=== PATIENT | male | born 1950 | race Caucasian/White ===

== ENCOUNTER 2017-02-21 07:38 | Observation (INO) ==
[2017-02-21 08:22] LABS: Basophils % 0.4 %; Eosinophils # 0.1 K/mcL (0.0-0.6); Eosinophils % 0.9 %; Hematocrit 45.1 % (37.5-50.1); Hemoglobin 14.9 g/dL (12.9-16.9); Immature Granulocytes % 0.1 % (0-4); Lymphocytes % 25.9 %; Mean Corpuscular Hemoglobin 28.4 pg (28.0-33.3); Mean Corpuscular Volume 85.9 fL (83.0-100.0); Mean Platelet Volume 9.9 fL (9.4-12.4); Monocytes # 0.5 K/mcL (0.0-1.3); Monocytes % 6.1 %; Neutrophils # 5.2 K/mcL (1.6-8.9); Platelet Count 201 K/mcL (140-400); Red Blood Count 5.25 M/mcL (4.19-5.50); Red Cell Distribution Width 13.6 % (11.5-14.5); Segmented Neutrophils % 66.6 %
[2017-02-21 08:28] LABS: INR 1.2; Prothrombin Time 12.8 Seconds (9.4-12.1)
[2017-02-21 08:31] LABS: Activated Partial Thrombo Time 31.3 Seconds (26.0-36.0)
[2017-02-21 08:41] LABS: Alanine Aminotransferase 46 Units/L (0-55); Albumin 3.6 g/dL (3.5-5.0); Albumin/Globulin Ratio 1.2 (1.1-2.2); Alkaline Phosphatase 108 Units/L (38-126); Aspartate Amino Transferase 41 Units/L (5-34); BUN/Creatinine Ratio 20 (6-26); Bilirubin,Direct 0.3 mg/dL (0.0-0.5); Bilirubin,Indirect 0.5 mg/dL (0.0-1.2); Bilirubin,Total 0.8 mg/dL (0.2-1.2); Blood Urea Nitrogen 17 mg/dL (8-26); Calcium 9.3 mg/dL (8.6-10.8); Carbon Dioxide 17 mEq/L (19-29); Globulin 3.1 g/dL (2.4-3.5); Glucose 122 mg/dL (70-99); Total Protein 6.7 g/dL (6.0-8.3); eGFR For African Americans > 60 (> 60); eGFR For Non-African Americans > 60 (> 60)
--- NOTE | 2017-02-21 08:43 | Emergency Department Note ---
START Narrative - START START: I examined this patient and my medical decision-making was reviewed with the TANNING CONSULTANT/PA/Advanced Practice Nurse/Resident Physician. I agree with the documented findings, disposition and treatment plan as described except to the extent set forth below. I did see the patient spoke with him and examine him and his lungs are clear, heart is regular without murmur. He does have shortness of breath and chest discomfort. Presently the last 1 week. I did review his EKG showing sinus tachycardia with rate 112 bpm and there are frequent PVCs and some nonspecific ST changes. The patient will be admitted to the hospital. Does have labs pending including troponin level. D-dimer will be added. Chest x-ray. We watched on the director of cardiac cath lab and pulse oximeter [id number]
--- NOTE | 2017-02-21 08:53 | Emergency Department Note ---
Disposition Clinical Impression: NSTEMI (non-ST elevated myocardial infarction), Dilated aortic root Acute congestive heart failure Qualifiers: Congestive heart failure type: unspecified congestive heart failure type Qualified Code(s): I50.9 - Heart failure, unspecified Disposition: Admitted As Inpatient Condition: Fair Referrals: NONE,PCP [Primary Care Provider] - Forms: ED Satisfaction Letter Time of Disposition: 10:25 SOB HPI - General Chief Complaint: ED Shortness of Breath/Dyspnea Stated Complaint: SOB Time Seen by Provider: 02/21/17 07:45 Source: patient, family Mode of arrival: ambulatory Limitations: no limitations Nursing Notes Reviewed: Yes Vital Signs Reviewed: Yes - History of Present Illness Mr. Carreon is a 66-year-old male with no past medical history who presents to the emergency department with a one-week history of shortness of breath. He describes the shortness of breath as worsening upon exertion and intermittently worsening. Per patient's , patient does not go to many doctors. Patients concern alarmed the patient's who urged him to come to the emergency department this morning. Patient says he does have some vague tightness in his chest. He describes this as radiating to his arms with some tingling. He does state that many people in his family have been sick recently with upper respiratory infections. He denies any recent surgery or lower extremity pain or discomfort. He denies any nausea or vomiting or any sweating. However he does state he wakes from sleep in the middle the night and feels like he cannot catch his breath. Patient is a heavy smoker and a heavy drinker. He denies any difficulty urinating, any abnormal bowel movements, or any hematuria or hematochezia. - Related Data Home Medications Medication Instructions Recorded Confirmed No Known Home Drugs 02/21/17 02/21/17 Allergies Allergy/AdvReac Type Severity Reaction Status Date / Time No Known Allergies Allergy Verified 02/21/17 07:43 Constitutional: Denies: fever, chills Cardiovascular: Reports: chest pain, palpitations, dyspnea on exertion, paroxysmal nocturnal dyspnea. Denies: edema, syncope Respiratory: Reports: dyspnea. Denies: cough, wheezes, hemoptysis, stridor, sputum production Gastrointestinal: Denies: abdominal pain, nausea, vomiting, diarrhea, hematemesis, melena, hematochezia Genitourinary: Denies: urgency Musculoskeletal: Denies: back pain, neck pain Neurological: Reports: paresthesias (in his bilateral hands, transient abnormal sensation that radiates from chest discomfort). Denies: headache, weakness, numbness Psychiatric: Reports: other (Heavy drinker and smoker) Past Medical History - Past Medical History Attestation: Yes The following information was validated with the patient. Source: patient, obtained from family Medical history: Reports: no medical history Psychiatric history: Reports: no psych history - Social History Smoking Status: Current every day smoker Smokeless Tobacco Status: No Alcohol use: Reports: occasionally Drug use: Reports: none Physical Exam - General Limitations: no limitations General appearance: alert, in no apparent distress - Head Head exam: atraumatic, normocephalic - Eye Eye exam: Present: normal appearance, EOMI. Absent: conjunctival injection - ENT ENT exam: mucous membranes moist - Respiratory Respiratory exam: Present: normal lung sounds bilaterally. Absent: respiratory distress, wheezes, stridor - Cardiovascular Cardiovascular exam: Present: tachycardia, irregular rhythm, systolic murmur ( holosystolic), other (bounding pulses, no carotid bruits). Absent: JVD - Abdominal Exam Abdominal exam: Present: soft, Non-Tender - Extremities Exam Extremities exam: Present: normal inspection, full ROM, normal capillary refill. Absent: tenderness, pedal edema, calf tenderness - Neurological Exam Neurological exam: Present: alert, oriented X3 - Psychiatric Psychiatric exam: Present: normal affect - Skin Skin exam: Present: warm, dry, intact Course Course Narrative: Patient with a one-week history of chest discomfort and shortness of breath. We are concerned for ACS versus PE. Of note, we also are considering myocarditis, pericarditis, or pneumonia. We will proceed with dimer and this cardiac workup. - Reevaluation(s) Reevaluation #1: Patient's ECG showing sinus tachycardia with PVCs. Left atrial enlargement. We were unable to obtain an old EKG. Patient's troponin 0.04, BNP 2000, and d- dimer in the 800s. We will proceed to the CTA of the chest. Reevaluation #2: Patient CTA of his chest shows a dilated thoracic aorta. No evidence of pulmonary emboli. Of note patient does have significant pulmonary edema. We will admit the patient to the hospital with a diagnosis of new onset acute congestive heart failure, and STEMI, and pulmonary edema. Dr. Hatch on medicine admitted the patient. Vital Signs Temperature 97.5 F L 02/21/17 07:40 Pulse Rate 116 02/21/17 07:40 Respiratory Rate 16 02/21/17 07:40 Blood Pressure 180/112 02/21/17 07:40 O2 Sat by Pulse Oximetry 96 02/21/17 07:40 Temperature 97.5 F L 02/21/17 07:40 Pulse Rate 116 02/21/17 07:40 Respiratory Rate 16 02/21/17 07:40 Blood Pressure 180/112 02/21/17 07:40 O2 Sat by Pulse Oximetry 96 02/21/17 07:40 Oxygen Delivery Oxygen Delivery Room Air Shortness of Breath/Dyspnea - Medical Records Medical records reviewed: Yes I reviewed the patient's medical records. - Lab Data Lab results reviewed: Yes I reviewed the patient's lab results. Result diagrams: 02/21/17 08:16 02/21/17 08:16 Lab Results 02/21/17 02/21/17 02/21/17 Range/Units 08:16 08:16 08:16 WBC 7.9 (4.3-11.1) K/mcL RBC 5.25 (4.19-5.50) M/mcL Hgb 14.9 (12.9-16.9) g/dL Hct 45.1 (37.5-50.1) % MCV 85.9 (83.0-100.0) fL MCH 28.4 (28.0-33.3) pg MCHC 33.0 (31.6-35.5) g/dL RDW 13.6 (11.5-14.5) % Plt Count 201 (140-400) K/mcL MPV 9.9 (9.4-12.4) fL Immature Gran % 0.1 (0-4) % Seg Neutrophils % 66.6 % Lymphocytes % 25.9 % Monocytes % 6.1 % Eosinophils % 0.9 % Basophils % 0.4 % Neutrophils # 5.2 (1.6-8.9) K/mcL Lymphocytes # 2.0 (0.6-4.6) K/mcL Monocytes # 0.5 (0.0-1.3) K/mcL Eosinophils # 0.1 (0.0-0.6) K/mcL Basophils # 0.0 (0.0-0.2) K/mcL PT (9.4-12.1) Seconds INR APTT (26.0-36.0) Seconds D-Dimer (0-500) ng/mLFEU Carbon Dioxide 17 L (19-29) mEq/L BUN 17 (8-26) mg/dL Creatinine 0.83 (0.72-1.25) mg/dL Est GFR ( Amer) > 60 (> 60) Est GFR (Non-Af Amer) > 60 (> 60) BUN/Creatinine Ratio 20 (6-26) Glucose 122 H (70-99) mg/dL Lactic Acid 1.6 (0.5-2.2) mmol/L Calcium 9.3 (8.6-10.8) mg/dL Total Bilirubin 0.8 (0.2-1.2) mg/dL Direct Bilirubin 0.3 (0.0-0.5) mg/dL Indirect Bilirubin 0.5 (0.0-1.2) mg/dL AST 41 H (5-34) Units/L ALT 46 (0-55) Units/L Alkaline Phosphatase 108 (38-126) Units/L Troponin I (0-0.03) ng/mL B-Natriuretic Peptide (0-100) pg/mL Serum Total Protein 6.7 (6.0-8.3) g/dL Albumin 3.6 (3.5-5.0) g/dL Globulin 3.1 (2.4-3.5) g/dL Albumin/Globulin Ratio 1.2 (1.1-2.2) 02/21/17 02/21/17 02/21/17 Range/Units 08:16 08:16 08:16 WBC (4.3-11.1) K/mcL RBC (4.19-5.50) M/mcL Hgb (12.9-16.9) g/dL Hct (37.5-50.1) % MCV (83.0-100.0) fL MCH (28.0-33.3) pg MCHC (31.6-35.5) g/dL RDW (11.5-14.5) % Plt Count (140-400) K/mcL MPV (9.4-12.4) fL Immature Gran % (0-4) % Seg Neutrophils % % Lymphocytes % % Monocytes % % Eosinophils % % Basophils % % Neutrophils # (1.6-8.9) K/mcL Lymphocytes # (0.6-4.6) K/mcL Monocytes # (0.0-1.3) K/mcL Eosinophils # (0.0-0.6) K/mcL Basophils # (0.0-0.2) K/mcL PT 12.8 H (9.4-12.1) Seconds INR 1.2 APTT 31.3 (26.0-36.0) Seconds D-Dimer 829 H (0-500) ng/mLFEU Carbon Dioxide (19-29) mEq/L BUN (8-26) mg/dL Creatinine (0.72-1.25) mg/dL Est GFR ( Amer) (> 60) Est GFR (Non-Af Amer) (> 60) BUN/Creatinine Ratio (6-26) Glucose (70-99) mg/dL Lactic Acid (0.5-2.2) mmol/L Calcium (8.6-10.8) mg/dL Total Bilirubin (0.2-1.2) mg/dL Direct Bilirubin (0.0-0.5) mg/dL Indirect Bilirubin (0.0-1.2) mg/dL AST (5-34) Units/L ALT (0-55) Units/L Alkaline Phosphatase (38-126) Units/L Troponin I 0.04 H* (0-0.03) ng/mL B-Natriuretic Peptide 2008 H (0-100) pg/mL Serum Total Protein (6.0-8.3) g/dL Albumin (3.5-5.0) g/dL Globulin (2.4-3.5) g/dL Albumin/Globulin Ratio (1.1-2.2) - Radiology Data Radiology results reviewed: Yes I reviewed the patient's radiology results. Chest X-Ray 02/21/17 08:07 IMPRESSION: Findings are most consistent with congestive heart failure. Small bilateral pleural effusions are present. D/ / 02/21/2017 09:03:47 Kuldeep Murry MD / [facility] Interpreting Provider: Kuldeep Murry MD Chest CTA 02/21/17 08:53 IMPRESSION: No evidence of pulmonary embolism. Small bilateral pleural effusions, worse on the right than the left, and associated compressive atelectasis. Moderate emphysematous changes. Main pulmonary artery is mildly dilated, suggestive of pulmonary arterial hypertension. Dilated ascending thoracic aorta, measuring up to 4 cm. D/ / 02/21/2017 09:41:00 León Joy MD / [facility] Interpreting Provider: León Joy MD - EKG Data EKG attestation: Yes I reviewed and interpreted this EKG. EKG results narrative: Patient's ECG on 02/21/2017 at 7:51 AM shows sinus tachycardia with frequent PVCs. There is markedly left atrial enlargement. We were unable to obtain an old ECG for comparison.
[2017-02-21 09:03] LABS: Chloride 111 mEq/L (98-109); Osmolality,Calculated 291 (280-300); Potassium 3.8 mEq/L (3.5-4.5); Sodium 139 mEq/L (136-145)
[2017-02-21] MEDS ORDERED: Aspirin 325 MG TABLET PO ONE (09:29)
[2017-02-21] MEDS ORDERED: Nitroglycerin 0.4 MG TAB.SUBL SL ONE (09:31)
[2017-02-21] MEDS ORDERED: Nitroglycerin 1 INCH/GM PACKET TP ONE (09:35)
[2017-02-21] MEDS ORDERED: Furosemide 40 MG TABLET PO ONE (09:42)
[2017-02-21] MEDS ORDERED: Ondansetron 4 MG/2 ML VIAL IVP PRN ×2 (12:31→20:47)
[2017-02-21] MEDS ORDERED: Acetaminophen 325 MG TABLET PO PRN ×2 (12:31→20:47)
[2017-02-21] MEDS ORDERED: Naloxone 0.4 MG/ML INJ IVP PRN ×2 (12:31→20:47)
--- NOTE | 2017-02-21 13:31 | Internal Med History&Physical ---
<Tricia Cabrera M - Last Filed: 02/21/17 14:56> Date of Encounter: 02/21/17 Time of Encounter: 13:27 Assessment and Plan (1) Acute congestive heart failure Current visit: Yes Status: Acute Patient presented with shortness of breath x 1 week and chest tightness. BNP elevated to 2008. CXR consistent with CHF. CTA showed no PE, small bilateral pleural effusions. On exam, patient with crackles in bilateral bases, no peripheral edema. Patient given 40mg lasix IVP in ED, as well as aspirin and nitro. Continuous lopper Lasix 40mg IVP BID cardiac diet daily weights strict I/Os Cardiology consulted. Qualifiers: Congestive heart failure type: unspecified congestive heart failure type Qualified Code(s): I50.9 - Heart failure, unspecified (2) Elevated troponin Current visit: Yes Status: Acute Troponin of 0.04. Patient complaining of shortness of breath, worse with exertion x 1 week as well as chest "tightness". Presentation consistent with new acute CHF, and elevated troponin is likely demand ischemia related to the Acute CHF. Patient given aspirin and nitro in ED Continuous lopper serial troponins consult to cardiology. (3) Smoker Current visit: Yes Status: Acute Patient smokes 1 Pack per day. Discussed smoking cessation and recommended quitting, patient not interested in quitting at this time. Smoking cessation education and nicotine patch ordered. (4) Dilated aortic root Current visit: Yes Status: Acute Seen on CTA. Cardiology consulted. (5) Hypertension Current visit: Yes Status: Acute Patient's blood pressure has been running 160s/100s since arrival. He has no formal diagnosis of HTN, but he has not seen a healthcare provider in years. He is getting lasix 40mg IVP BID. Will start lisinopril, and give hydralazine IVP PRN. Qualifiers: Hypertension type: essential hypertension Qualified Code(s): I10 - Essential (primary) hypertension (6) DVT prophylaxis Current visit: Yes Status: Acute anti-embolic stockings Lovenox SQ daily Internal Medicine - H&P: HPI Chief complaint: shortness of breath Admitted From: Emergency Dept Plans for Post Hospital Care: Home History of present illness: Mr. Malone is a 66 year old male no significant past medical history as he has not seen a healthcare provider in years presented to the emergency department today with complaints of shortness of breath for 1 week as well as tightness in his chest radiating to his arms. Patient reports he has noticed shortness of breath last week, worse with exertion, worse when lying flat at night and then yesterday and today noticed some tightness in his chest. The tightness radiates down his bilateral arms and he has some numbness and tingling in bilateral hands, this seems to be worse with activity as well. He denies any lightheadedness, headache, palpitations, nausea, vomiting, abdominal pain, fever, chills or sweats. Evaluation in emergency department revealed mildly elevated d-dimer of 829, mildly elevated troponin of 0.04, elevated BNP of 2008. EKG showed sinus Tachycardia with occasional PVCs. CTA showed no PE, small bilateral pleural effusions moderate emphysematous changes and a dilated aortic root. Chest x-ray was most consistent with congestive heart failure. On exam, patient alert and oriented, in no acute distress. Heart had regular rate and rhythm. Lungs with bilateral crackles in the bases. No peripheral edema, peripheral pulses intact. Past Med Surg Social Fam HX - Past Medical History Medical history: no medical history Psychiatric history: no psych history - Past Surgical History Surgical History: sinus surgery - Social History Smoking Status: Current every day smoker Packs per day: 1 Smokeless Tobacco Status: No Alcohol use: occasionally Drug use: none - Family History Mother Living Status: Age at : 87 Cause of : cardiac Hx Family Cardiac Disorders: Yes (Afib, CHF) Father Living Status: Age at : 62 Cause of : Lung cancer Hx Family Cancer: Yes (lung) Internal Medicine - H&P: Meds No Known Home Drugs 02/21/17 [History] 3 Allergy/AdvReac Type Severity Reaction Status Date / Time No Known Allergies Allergy Verified 02/21/17 07:43 All Systems PM: A 10-system review of systems was performed and is negative for pertinent findings except as documented above in the HPI. - Constitutional Constitutional: no chills, no fever(s), no night sweats - EENT Eyes: no change in vision, no discharge, no pain, no photophobia Ears: no ear discharge, no ear pain, no tinnitus Nose, mouth and throat: no dysphagia, no nasal discharge, no neck pain, no sore throat - Cardiovascular Cardiovascular ROS IM: chest pain, dyspnea, no diaphoresis, no lightheadedness, no palpitations, no syncope - Respiratory Respiratory: dyspnea, no cough, no wheezing, no excessive phlegm production - Gastrointestinal Gastrointestinal: no abdominal pain, no diarrhea, no hematemesis, no hematochezia, no melena, no nausea, no vomiting - Musculoskeletal Musculoskeletal ROS IM: numbness (bilateral hands), tingling (bilateral hands) - Integumentary Integumentary IM: no rash, no unusual bruising - Neurological Neurological ROS: no confusion, no convulsions, no focal weakness, no numbness, no tingling, no tremor(s) - Hematologic/Lymphatic Hematologic/Lymphatic: no easy bruising - Constitutional Vitals: Temp Pulse Resp BP Pulse Ox 97.7 F 111 13 166/102 93 02/21/17 12:32 02/21/17 12:32 02/21/17 12:32 02/21/17 12:32 02/21/17 12:32 General appearance: Present: A&O X 3, pleasant, no acute distress - Head Head exam: Present: atraumatic, normocephalic - Eye Eye exam: Present: PERRL, conjuntiva pink, sclera anicteric Pupils: Present: PERRL - Neck Neck exam general surgery: Present: supple, trachea midline. Absent: lymphadenopathy - Respiratory Respiratory exam: Present: rales (crackles in bilateral bases). Absent: accessory muscle use, rhonchi, wheezes - Cardiovascular Cardiovascular exam: Present: RRR, +S1, +S2. Absent: diastolic murmur, gallop, rubs, systolic murmur - GI/Abdominal GI/Abdominal exam: Present: normal bowel sounds, soft, no peritoneal signs. Absent: distended, tenderness - Extremities Exam Extremities exam: Present: warm, radial pulses palpable and symmetrical. Absent : calf tenderness, cyanotic, pedal edema - Neurological Exam Neurological exam: Present: CN II-XII intact, oriented X3, no focal deficits. Absent: pronater drift, facial droop, speech deficit - Skin Skin exam: Present: dry, intact Internal Med - H&P Results - Labs CBC & Chem 7: 02/21/17 08:16 02/21/17 08:16 Labs: All Lab Results (24 Hours) 02/21/17 02/21/1717 Range/Units 08:16 08:16 08:16 WBC 7.9 (4.3-11.1) K/mcL RBC 5.25 (4.19-5.50) M/mcL Hgb 14.9 (12.9-16.9) g/dL Hct 45.1 (37.5-50.1) % MCV 85.9 (83.0-100.0) fL MCH 28.4 (28.0-33.3) pg MCHC 33.0 (31.6-35.5) g/dL RDW 13.6 (11.5-14.5) % Plt Count 201 (140-400) K/mcL MPV 9.9 (9.4-12.4) fL Immature Gran % 0.1 (0-4) % Seg Neutrophils % 66.6 % Lymphocytes % 25.9 % Monocytes % 6.1 % Eosinophils % 0.9 % Basophils % 0.4 % Neutrophils # 5.2 (1.6-8.9) K/mcL Lymphocytes # 2.0 (0.6-4.6) K/mcL Monocytes # 0.5 (0.0-1.3) K/mcL Eosinophils # 0.1 (0.0-0.6) K/mcL Basophils # 0.0 (0.0-0.2) K/mcL PT (9.4-12.1) Seconds INR APTT (26.0-36.0) Seconds D-Dimer (0-500) ng/mLFEU Sodium 139 (136-145) mEq/L Potassium 3.8 (3.5-4.5) mEq/L Chloride 111 H (98-109) mEq/L Carbon Dioxide 17 L (19-29) mEq/L BUN 17 (8-26) mg/dL Creatinine 0.83 (0.72-1.25) mg/dL Est GFR ( Amer) > 60 (> 60) Est GFR (Non-Af Amer) > 60 (> 60) BUN/Creatinine Ratio 20 (6-26) Glucose 122 H (70-99) mg/dL Calculated Osmolality 291 (280-300) Lactic Acid 1.6 (0.5-2.2) mmol/L Calcium 9.3 (8.6-10.8) mg/dL Total Bilirubin 0.8 (0.2-1.2) mg/dL Direct Bilirubin 0.3 (0.0-0.5) mg/dL Indirect Bilirubin 0.5 (0.0-1.2) mg/dL AST 41 H (5-34) Units/L ALT 46 (0-55) Units/L Alkaline Phosphatase 108 (38-126) Units/L Troponin I (0-0.03) ng/mL B-Natriuretic Peptide (0-100) pg/mL Serum Total Protein 6.7 (6.0-8.3) g/dL Albumin 3.6 (3.5-5.0) g/dL Globulin 3.1 (2.4-3.5) g/dL Albumin/Globulin Ratio 1.2 (1.1-2.2) 02/21/17 02/21/17 02/21/17 Range/Units 08:16 08:16 08:16 WBC (4.3-11.1) K/mcL RBC (4.19-5.50) M/mcL Hgb (12.9-16.9) g/dL Hct (37.5-50.1) % MCV (83.0-100.0) fL MCH (28.0-33.3) pg MCHC (31.6-35.5) g/dL RDW (11.5-14.5) % Plt Count (140-400) K/mcL MPV (9.4-12.4) fL Immature Gran % (0-4) % Seg Neutrophils % % Lymphocytes % % Monocytes % % Eosinophils % % Basophils % % Neutrophils # (1.6-8.9) K/mcL Lymphocytes # (0.6-4.6) K/mcL Monocytes # (0.0-1.3) K/mcL Eosinophils # (0.0-0.6) K/mcL Basophils # (0.0-0.2) K/mcL PT 12.8 H (9.4-12.1) Seconds INR 1.2 APTT 31.3 (26.0-36.0) Seconds D-Dimer 829 H (0-500) ng/mLFEU Sodium (136-145) mEq/L Potassium (3.5-4.5) mEq/L Chloride (98-109) mEq/L Carbon Dioxide (19-29) mEq/L BUN (8-26) mg/dL Creatinine (0.72-1.25) mg/dL Est GFR ( Amer) (> 60) Est GFR (Non-Af Amer) (> 60) BUN/Creatinine Ratio (6-26) Glucose (70-99) mg/dL Calculated Osmolality (280-300) Lactic Acid (0.5-2.2) mmol/L Calcium (8.6-10.8) mg/dL Total Bilirubin (0.2-1.2) mg/dL Direct Bilirubin (0.0-0.5) mg/dL Indirect Bilirubin (0.0-1.2) mg/dL AST (5-34) Units/L ALT (0-55) Units/L Alkaline Phosphatase (38-126) Units/L Troponin I 0.04 H* (0-0.03) ng/mL B-Natriuretic Peptide 2008 H (0-100) pg/mL Serum Total Protein (6.0-8.3) g/dL Albumin (3.5-5.0) g/dL Globulin (2.4-3.5) g/dL Albumin/Globulin Ratio (1.1-2.2) - Diagnostic Studies Chest x-ray Additional comments: Chest X-Ray 02/21/17 08:07 IMPRESSION: Findings are most consistent with congestive heart failure. Small bilateral pleural effusions are present. D/ / 02/21/2017 09:03:47 Kuldeep Murry MD / [facility] Interpreting Provider: Kuldeep Murry MD CT scan - chest Additional comments: Chest CTA 02/21/17 08:53 IMPRESSION: No evidence of pulmonary embolism. Small bilateral pleural effusions, worse on the right than the left, and associated compressive atelectasis. Moderate emphysematous changes. Main pulmonary artery is mildly dilated, suggestive of pulmonary arterial hypertension. Dilated ascending thoracic aorta, measuring up to 4 cm. D/ / 02/21/2017 09:41:00 [facility] Joy MD / [facility] Inter[facility] Provider: León Joy MD <David Trevino - Last Filed: 02/21/17 16:34> Date of Encounter: 02/21/17 Internal Medicine - H&P: HPI History of present illness: Mr. Malone is a 66 year old male All Systems PM: A 10-system review of systems was performed and is negative for pertinent findings except as documented above in the HPI. - Constitutional Vitals: Temp Pulse Resp BP Pulse Ox 97.2 F L 106 15 160/93 97 02/21/17 16:11 02/21/17 16:11 02/21/17 16:11 02/21/17 16:11 02/21/17 16:11 Internal Med - H&P Results - Labs CBC & Chem 7: 02/21/17 08:16 02/21/17 08:16 Labs: Cardiac Enzymes 02/21/17 Range/Units 13:51 Troponin I 0.04 H* (0-0.03) ng/mL - Attending Attestation I personally interviewed and examined this patient. I reviewed all labs and studies. I agree with the findings, assessment, and plan of Tricia Cabrera NP. Cardiology input is also appreciated. We will continue with Lasix as ordered. Blood pressure control. Further testing as deemed necessary per cardiology. Patient states she started improved since his first dose of Lasix. We will continue to monitor. Await echocardiogram.
[2017-02-21] MEDS ORDERED: Nicotine 21 MG PATCH.TD24 TD SCH (13:45)
--- NOTE | 2017-02-21 15:19 | Cardiology Consult Note ---
Date of Encounter: 02/21/17 Time of Encounter: 15:17 Assessment and Plan (1) Chest pain Current Visit: Yes Status: Acute Intermittent chest pain for two weeks. Typical symptoms. Cardiac risk factors include tobacco use, uncontrolled HTN, and family history ( brother with ME at 49). Troponin 0.04. EKG shows ST with multifocal PVC. No acute ST changes. Continue to trend troponin. Check TTE. NPO after midnight for further testing. Recommend asa, statin, and bb. Increase metoprolol for PVC. Qualifiers: Chest pain type: unspecified Qualified Code(s): R07.9 - Chest pain, unspecified (2) Acute congestive heart failure Current Visit: Yes Status: Acute C/o orthpnea and PND. Acute CHF, unknown if systolic or diastolic at this point. BNP 1999. Check TTE to assess LV function. Agree with IV lasix. Monitor BMP. Daily weights and strict I&O. Qualifiers: Congestive heart failure type: unspecified congestive heart failure type Qualified Code(s): I50.9 - Heart failure, unspecified (3) Elevated troponin Current Visit: Yes Status: Acute See plan above. Troponin noted to be 0.04. Non-diagnostic at this point. Continue to trend. (4) Hypertension Current Visit: Yes Status: Acute Uncontrolled hypertension. New diagnosis. Increase metoprolol. Consider adding lisinopril. Recommend lowering slowly. Low sodium diet. Qualifiers: Hypertension type: essential hypertension Qualified Code(s): I10 - Essential (primary) hypertension Discussion w patient/family: The assessment and plan as outlined above was discussed with the patient and/or family members who expressed understanding and agreement. All questions were answered. Thank you for involving us in the care of your patient. Please call with any questions. History of Present Illness Consult date: 02/21/17 Requesting physician: Tricia Cabrera Consult reason: Chest pain Chief complaint: Chest pain, SOB, PND History of present illness: Mr. Malone is a 66 year old male with no significant past medical history who presented with chest pain. He c/o two weeks of mid-sternal chest tightness that occurs with activity or rest. Pain has radiated to his left shoulder on occasion. He associates it with SOB. He also c/o waking up with difficulty breathing multiple times at night. He denies weight gain or swelling. Denies increased abdominal girth. He does smoke one pack a day. Past Med Surg Social Fam HX - Past Medical History Medical history: no medical history, arthritis Psychiatric history: no psych history - Past Surgical History Surgical History: sinus surgery - Social History Smoking Status: Current every day smoker Packs per day: 1 Smokeless Tobacco Status: No Alcohol use: occasionally Drug use: none - Family History Mother Living Status: Age at : 87 Cause of : cardiac Hx Family Cardiac Disorders: Yes (Afib, CHF) Father Living Status: Age at : 62 Cause of : Lung cancer Hx Family Cancer: Yes (lung) Medications and Allergies No Known Home Drugs 02/21/17 [History] 3 Allergy/AdvReac Type Severity Reaction Status Date / Time No Known Allergies Allergy Verified 02/21/17 07:43 All Systems Review: A 10-system review of systems was performed and is negative for pertinent findings except as documented above in the HPI. Physical Examination Vital Signs, Last 4 Hours Temp Pulse Resp BP Pulse Ox 02/21/17 14:38 97.9 F 97 16 146/83 93 02/21/17 12:32 97.7 F 111 13 166/102 93 02/21/17 11:43 98 16 160/108 96 General: Conversant, No Apparent Distress HEENT: Atraumatic, Normocephaly, Mucus Membranes Moist Neck: No JVD, Normal carotid pulses Cardiac: Reg Rate and Rhythm, Normal S1 and S2, No Murmur Lungs: Normal Breath Sounds, No Wheeze, Rales, Rhonchi Neuro: Alert and responsive, No focal deficits noted Abdomen: Soft, Non-Tender Skin: No rashes noted on visualized skin Musculoskeletal: No Chest Wall Tenderness Extremities: No Clubbing, No Cyanosis, No Edema, Normal Pulses Results 02/21/17 08:16 02/21/17 08:16 - EKG Interpretation EKG results cardiology: personally reviewed Consult Discharge Plan - Plan Referrals: NONE,PCP [Primary Care Provider] -
[2017-02-21] MEDS ORDERED: Furosemide 40 MG/4 ML VIAL IVP SCH (21:00)
[2017-02-21] MEDS: Furosemide 40 MG/4 ML VIAL IVP SCH (21:32)
[2017-02-22 05:43] LABS: Basophils % 0.5 %; Eosinophils # 0.1 K/mcL (0.0-0.6); Eosinophils % 1.6 %; Hematocrit 41.3 % (37.5-50.1); Hemoglobin 14.1 g/dL (12.9-16.9); Immature Granulocytes % 0.1 % (0-4); Lymphocytes # 3.1 K/mcL (0.6-4.6); Lymphocytes % 39.7 %; Mean Corpuscular HGB Conc 34.1 g/dL (31.6-35.5); Mean Corpuscular Hemoglobin 29.2 pg (28.0-33.3); Mean Corpuscular Volume 85.5 fL (83.0-100.0); Monocytes # 0.6 K/mcL (0.0-1.3); Monocytes % 7.6 %; Neutrophils # 3.9 K/mcL (1.6-8.9); Platelet Count 171 K/mcL (140-400); Red Blood Count 4.83 M/mcL (4.19-5.50); Red Cell Distribution Width 13.4 % (11.5-14.5); Segmented Neutrophils % 50.5 %
[2017-02-22 06:08] LABS: BUN/Creatinine Ratio 17 (6-26); Blood Urea Nitrogen 16 mg/dL (8-26); Calcium 8.9 mg/dL (8.6-10.8); Carbon Dioxide 23 mEq/L (19-29); Chloride 108 mEq/L (98-109); Chol/HDL Ratio 5.9 (0-4.9); Cholesterol 165 mg/dL (< 200); Glucose 95 mg/dL (70-99); HDL Cholesterol 28 mg/dL (40-59); LDL Cholesterol,Calculated 116 mg/dL (0-99); Osmolality,Calculated 291 (280-300); Potassium 3.4 mEq/L (3.5-4.5); Sodium 140 mEq/L (136-145); Triglycerides 104 mg/dL (< 150); eGFR For African Americans > 60 (> 60); eGFR For Non-African Americans > 60 (> 60)
[2017-02-22] MEDS ORDERED: *HR* Enoxaparin 40 MG/0.4 ML SYRINGE SQ SCH ×2 (07:00)
[2017-02-22 07:24] LABS: Thyroid Stimulating Hormone 1.624 mcIU/mL (0.350-4.840)
[2017-02-22] MEDS ORDERED: Aspirin 81 MG TAB.CHEW PO SCH (09:00)
--- NOTE | 2017-02-22 09:24 | Cardiology Progress Note ---
Date of Encounter: 02/22/17 Time of Encounter: 09:00 Assessment and Plan (1) Systolic CHF Current Visit: Yes Status: Acute Newly diagnosed systolic CHF--etiology and chronicity unclear. Patient appears well compensated, euvolemic upon exam today. CXR: small bilateral pleural effusions, chest CTA: small bilateral effusions R>L , BNP >2000. TTE: LVEF 15%, severe global left ventricular systolic dysfunction, moderate left ventricular diastolic dysfunction, moderate to severely dilated left atrium , mild AR, mitral valve leaflets are tethered apically, severe mitral regurgitation, the aortic root is mildly dilated, measuring 4.2 cm in the tubular portion, the IVC is dilated, < 50% respiratory change. Recommend LHC with possible PCI to evaluate for ischemic etiology. Alternatives , risks, and benefits discussed, he is agreeable to proceed. Plan for LHC today , keep NPO. Lopressor changed to coreg, continue ACEi. Will decrease IV lasix as patient is euvolemic upon exam. Strict I&O's, daily weights, Na/Fluid restriction diet. Further recommendations to follow. Qualifiers: Congestive heart failure chronicity: acute Qualified Code(s): I50.21 - Acute systolic (congestive) heart failure (2) Elevated troponin Current Visit: Yes Status: Acute Flat, adynamic troponin elevation (0.04 x3). Plan as above. (3) Hypertension Current Visit: Yes Status: Acute Control improved. Lopressor changed to Coreg due to CHF, continue ACEi. Na/fluid restriction diet. Qualifiers: Hypertension type: essential hypertension Qualified Code(s): I10 - Essential (primary) hypertension Discussion w patient/family: The assessment and plan as outlined above was discussed with the patient and/or family members who expressed understanding and agreement. All questions were answered. Thank you for involving us in the care of your patient. Please call with any questions. The patient will be discussed and reviewed with Dr. Cecilio Butler; changes to be made accordingly. Subjective Principal diagnosis: Cardiomyopathy Interval history: Seen and examined. Denies acute events overnight, reports dyspnea with minimal exertion. Discussed TTE findings at length with patient and family. Objective Vital Signs, Last 4 Hours Pulse BP Pulse Ox 02/22/17 08:37 89 143/85 95 General: Conversant, No Apparent Distress HEENT: Atraumatic, Normocephaly, Mucus Membranes Moist Cardiac: Reg Rate and Rhythm, Normal S1 and S2 Lungs: Normal Breath Sounds Neuro: Alert and responsive Abdomen: Soft Skin: No rashes noted on visualized skin Musculoskeletal: No Chest Wall Tenderness Extremities: No Edema, Normal Pulses Results 02/22/17 05:27 02/22/17 05:27 Lab Results 02/21/17 02/21/17 02/22/17 13:51 20:51 05:27 WBC 7.7 Hgb 14.1 Hct 41.3 Plt Count 171 Sodium Potassium Chloride Carbon Dioxide BUN Creatinine Glucose Calcium Troponin I 0.04 H* 0.04 H* TSH 02/22/17 05:27 WBC Hgb Hct Plt Count Sodium 140 Potassium 3.4 L Chloride 108 Carbon Dioxide 23 BUN 16 Creatinine 0.93 Glucose 95 Calcium 8.9 Troponin I TSH 1.624 Active Medications Acetaminophen (Tylenol) 650 mg PO Q6HR PRN PRN Reason: Mild Pain (1-3) Stop: 08/23/17 12:32 Aspirin (Aspirin) 81 mg PO DAILY [facility] Stop: 08/24/17 09:01 Carvedilol (Coreg) 6.25 mg PO BIDWM [facility] PRN Reason: Protocol Stop: 08/24/17 08:01 Furosemide (Lasix) 40 mg IVP BIDDIURETIC [facility] Stop: 08/23/17 21:01 Last Admin: 02/21/17 21:32 Dose: 40 mg Heparin Sodium (Porcine) (Heparin) 5,000 unit SQ Q12HCO [facility] Stop: 08/24/17 18:01 Hydralazine HCl (Hydralazine) 10 mg IVP Q6HR PRN PRN Reason: Hypertension Stop: 08/23/17 13:45 Lisinopril (Zestril) 5 mg PO DAILY [facility] PRN Reason: Protocol Stop: 08/23/17 13:46 Naloxone HCl (Narcan) 0.4 mg IVP Q2MIN PRN PRN Reason: Opioid Reversal Stop: 08/23/17 12:32 Nicotine (Nicoderm) 21 mg TD DAILY [facility] Stop: 08/23/17 13:46 Ondansetron HCl (Zofran) 4 mg IVP Q8HR PRN PRN Reason: Nausea And Vomiting Stop: 08/23/17 12:32 - Imaging and Cardiology Echo: report reviewed Other Results: 12 hour tele: avg HR=85 SR. Frequent PVCs - EKG Interpretation EKG results cardiology: personally reviewed - VTE Documentation of Mechanical Device: Graduated compression elastic hosiery Consult Discharge Plan - Plan Referrals: NONE,PCP [Primary Care Provider] -
[2017-02-22] MEDS: Aspirin 81 MG TAB.CHEW PO SCH (09:27)
[2017-02-22] MEDS: Nicotine 21 MG PATCH.TD24 TD SCH (09:28)
[2017-02-22] MEDS: Furosemide 40 MG/4 ML VIAL IVP SCH (09:28)
[2017-02-22] MEDS ORDERED: 0.9 % Sodium Chloride 1,000 ML ONE ×2 (12:47→12:59)
[2017-02-22] MEDS ORDERED: *HR* Heparin 10,000 UNIT/10 ML VIAL ONE (12:47)
[2017-02-22] MEDS ORDERED: Heparin 1,000 UNITS/500 mL NS 500 ML ONE (12:47)
[2017-02-22] MEDS ORDERED: Nitroglycerin 1,000 MCG/10 ML VIAL IV ONE (12:48)
--- NOTE | 2017-02-22 12:53 | Internal Med Progress Note ---
Date of Encounter: 02/22/17 Time of Encounter: 09:00 - Assessment and plan (1) Elevated troponin Current Visit: Yes Status: Acute Assessment and plan: Most likely demand ischemia due to CHF. Troponin 0.04/0.04/0.04, cardiology is on case (2) Smoker Current Visit: Yes Status: Acute Assessment and plan: Smoking cessation education. Place patient on nicotine patch (3) DVT prophylaxis Current Visit: Yes Status: Acute Assessment and plan: Heparin subcutaneously (4) Hypertension Current Visit: Yes Status: Acute Assessment and plan: Place the patient on Coreg and low-dose lisinopril now. Monitor BP Qualifiers: Hypertension type: essential hypertension Qualified Code(s): I10 - Essential (primary) hypertension (5) Systolic CHF Current Visit: Yes Status: Acute Assessment and plan: Echo shows LVEF 15%. Plan for LHC to rule out ischemic cardiomyopathy. On beta zina and BERNABE inhibitor. On low-dose Lasix as patient appears euvolemic. Qualifiers: Congestive heart failure chronicity: acute Qualified Code(s): I50.21 - Acute systolic (congestive) heart failure - Time Spent With Patient 25 - 35 minutes - Subjective Interval history: Patient is a 66-year-old male admitted to hospital for progressive shortness of breath. Echo shows systolic CHF with EF 15%. I saw and examined the patient today. He is awake alert, pleasant. Denies chest pain and shortness of breath. However, still has exertional intolerance. Vitals are stable. Cardiology on case and the place patient on beta zina and BERNABE inhibitor. On lasix 20mg iv qd. Plan for LHC today. - Constitutional Vitals: Temp Pulse Resp BP Pulse Ox 97.8 F 84 16 138/91 94 02/22/17 09:24 02/22/17 09:24 02/22/17 09:24 02/22/17 09:24 02/22/17 09:24 General appearance: Present: A&O X 3, pleasant, no acute distress, answers questions appropriately - Head Head exam: Present: atraumatic, normocephalic - Eye Eye exam: Present: PERRL, conjuntiva pink, sclera anicteric Pupils: Present: PERRL - Neck Neck exam general surgery: Present: supple, trachea midline. Absent: lymphadenopathy - Respiratory Respiratory exam: Present: CTAB. Absent: accessory muscle use, rales, rhonchi, wheezes - Cardiovascular Cardiovascular exam: Present: RRR, +S1, +S2. Absent: diastolic murmur, gallop, rubs, systolic murmur - GI/Abdominal GI/Abdominal exam: Present: normal bowel sounds, soft, no peritoneal signs. Absent: distended, tenderness - Extremities Exam Extremities exam: Present: warm, radial pulses palpable and symmetrical. Absent : calf tenderness, cyanotic, pedal edema - Neurological Exam Neurological exam: Present: CN II-XII intact, oriented X3, no focal deficits. Absent: pronater drift, facial droop, speech deficit - Skin Skin exam: Present: dry, intact Internal Medicine: Result - Labs CBC & Chem 7: 02/22/17 05:27 02/22/17 05:27 Labs: Short CBC 02/22/17 Range/Units 05:27 WBC 7.7 (4.3-11.1) K/mcL Hgb 14.1 (12.9-16.9) g/dL Hct 41.3 (37.5-50.1) % Plt Count 171 (140-400) K/mcL Neutrophils # 3.9 (1.6-8.9) K/mcL BMP 02/22/17 05:27 Sodium 140 Potassium 3.4 L Chloride 108 Carbon Dioxide 23 BUN 16 Creatinine 0.93 Glucose 95 Calcium 8.9 Cardiac Enzymes 02/21/17 02/21/17 Range/Units 13:51 20:51 Troponin I 0.04 H* 0.04 H* (0-0.03) ng/mL - ABG Interpretation ABG results: PT/INR, D-dimer PT 12.8 Seconds (9.4-12.1) H 02/21/17 08:16 D-Dimer 829 ng/mLFEU (0-500) H 02/21/17 08:16 - Impressions Impressions Echocardiogram 02/21/17 13:20 Impressions: LVEF 15%. Mildly dilated left ventricle. Severe global left ventricular systolic dysfunction. Moderate left ventricular diastolic dysfunction. Mildly dilated right ventricle with normal appearing function. Moderate to severely dilated left atrium. Mild aortic regurgitation. Mitral valve leaflets are tethered apically. Severe mitral regurgitation. RVSP not well obtained and I suspect underestimated due to poor TR jet. . Mild pulmonic regurgitation. The aortic root is mildly dilated, measuring 4.2 cm in the tubular portion. The IVC is dilated, < 50% respiratory change. Dr. Trevino, cardiology service notified via [facility]. Left Ventricular Wall Motion: Rest Echo Findings The apex, apical inferior, mid inferior, basal inferior, apical anterior, mid anterior, basal anterior, apical septal, mid inferior septal, basal inferior septal, apical lateral, mid anterior lateral, basal anterior lateral, mid anterior septal, mid inferior lateral, basal anterior septal and basal inferior lateral ovalles were hypokinetic. Findings: Study Quality * Technically adequate exam. ECG Findings * Normal sinus rhythm. Left Ventricle * LVEF 15%. * Mildly dilated left ventricle. * Severe global left ventricular systolic dysfunction. * Moderate left ventricular diastolic dysfunction. Right Ventricle * Mildly dilated right ventricle with normal appearing function. Left Atrium * Moderate to severely dilated left atrium. Right Atrium * Moderately dilated right atrium. Interatrial Septum * No evidence of PFO by color Doppler. Aortic Valve * Trileaflet aortic valve. * Mild aortic regurgitation. * No aortic stenosis. Mitral Valve * Mitral valve leaflets are tethered apically. * Severe mitral regurgitation. * No mitral stenosis. Tricuspid Valve * Normal tricuspid valve structure and function. * Trace tricuspid regurgitation. * RVSP not well obtained and I suspect underestimated due to poor TR jet. . Pulmonic Valve * Normal pulmonic valve structure. * Mild pulmonic regurgitation. Aorta * The aortic root is mildly dilated, measuring 4.2 cm in the tubular portion. Pericardium * There is a trivial pericardial effusion present. IVC * The IVC is dilated. * < 50% respiratory change. Pulmonary Artery * Normal visualized portions of the main pulmonary artery. - VTE Documentation of Mechanical Device: Graduated compression elastic hosiery Consult Discharge Plan - Plan Referrals: NONE,PCP [Primary Care Provider] -
[2017-02-22] MEDS ORDERED: Verapamil 5 MG/2 ML VIAL ONE (13:01)
[2017-02-22] MEDS ORDERED: *HR* Midazolam HCl 2 MG/2 ML VIAL ONE (13:20)
[2017-02-22] MEDS ORDERED: *HR* FentaNYL (PF) 100 MCG/2 ML VIAL ONE (13:21)
--- NOTE | 2017-02-22 13:35 | Cardiology Progress Note ---
Date of Encounter: 02/22/17 Time of Encounter: 13:30 Assessment and Plan Discussion w patient/family: The assessment and plan as outlined above was discussed with the patient and/or family members who expressed understanding and agreement. All questions were answered. Thank you for involving us in the care of your patient. Please call with any questions. Cardiac cath and possible intervention. Patient understands procedure and agrees. Subjective Principal diagnosis: Cardiomyopathy Interval history: Asked to see for cath in view of CMP with EF 15% and some atypical chest pain. No known cardiac history. No allergies and the Cr 0.83 Objective General: Conversant HEENT: Atraumatic, Normocephaly Neck: No JVD Cardiac: Reg Rate and Rhythm, Normal S1 and S2 Lungs: Normal Breath Sounds Neuro: Alert and responsive Abdomen: Soft Skin: No rashes noted on visualized skin Musculoskeletal: No Chest Wall Tenderness Extremities: No Clubbing, No Cyanosis Results 02/22/17 05:27 02/22/17 05:27 Lab Results 02/21/17 02/21/17 02/22/17 13:51 20:51 05:27 WBC 7.7 Hgb 14.1 Hct 41.3 Plt Count 171 Sodium Potassium Chloride Carbon Dioxide BUN Creatinine Glucose Calcium Troponin I 0.04 H* 0.04 H* TSH 02/22/17 05:27 WBC Hgb Hct Plt Count Sodium 140 Potassium 3.4 L Chloride 108 Carbon Dioxide 23 BUN 16 Creatinine 0.93 Glucose 95 Calcium 8.9 Troponin I TSH 1.624 - EKG Interpretation EKG results cardiology: personally reviewed, no diagnostic ischemia - VTE Documentation of Mechanical Device: Graduated compression elastic hosiery Consult Discharge Plan - Plan Referrals: NONE,PCP [Primary Care Provider] -
[2017-02-22] MEDS ORDERED: Tirofiban 5 MG/100ML 5 MG/100 ML BAG IV ONE (13:53)
--- NOTE | 2017-02-22 14:45 | Procedure Note ---
Date of procedure: 02/22/17 Pre-op diagnosis: CMP CAD Post-op diagnosis: same Procedure: Left cath from [facility] after a negative Viktor test. PTCA stent to the proximal LAD after predilating with 3.0 balloon. 3.25x18 mm Alpine BEA followed by 3.5x15 Alpine BEA Lesion from 90% to zero. CMP with EF 15 % ..EDP was 16mm . No complication. . Gave Aggrastat and heparin per protocol. Anesthesia: local Surgeon: Calin Ohara Estimated blood loss (cc): 10 Pathology: none sent Condition: stable Disposition: PACU
--- NOTE | 2017-02-22 14:52 | Invasive Diagnostic Lab Proc ---
Name: Vin Malone Date of Study: 02/22/2017 Date: 1950 Ht: 66.9in Medical Record#: [id number] Age: 66 Wt: 155.43lb Gender: Male BSA: 1.82 Order #: [id number] BMI: 24.39 Physicians Procedure Physician: Calin hOara MD Referring MD: Referring MD: Staff Name Position Time In Kyle Mercer RN Regional Office Coordinator 01:09 PM Ayanna Lisa RN Regional Office Coordinator 01:09 PM Corina, Tricia RT (R) Scrub 01:09 PM Sonal Jarrett RN Monitor 01:09 PM Indications Indication Non-Stemi Cardiomyopathy Procedures Performed Procedure L HRT ARTERY/VENTRICLE ANGIO PRQ CARD BEA STENT W/ANGIO 1 VSL Pre-Procedure Checklist Informed consent is complete signed and on chart. H&P is on chart. ID band is on and ID verified with patient. Patient NPO for procedure The procedure was described for the patient and questions were answered. Blood Pressure: 138/91 ECG is on chart. Rhythm: NSR Plan of Care Patient will tolerate the procedure without complications. Adequate level of comfort will be maintained. Hemodynamics will remain stable Patient will recover from procedure without complications. Respiratory function will be maintained. Cardiac rhythm will remain stable. Patient temperature will be maintained. Patient and/or family have verbalized understanding of the procedure. Patient Education Chief Complaint/Reason for Test: Cardiac Cath Developmental Category: Adult (18-64 years) Developmentally Appropriate for Age: Yes Learning Barriers: None Education Needs: Procedure Education Method: Verbal Information Taught: Cardiac Cath Educational Evaluation: Able to repeat information Intravenous Access Time IV Size Location DC'd Fluid/Drip Rate Units RN 01:06 PM 20g 1 /" Patent On Arrival Rt Arm 0.9NaCl 25 ml/hr Kyle Mercer RN Allergies No Known Allergies Vital Signs Time BP (mmHg) HR (bpm) O2 Sat. RR (bpm) LOC 01:07 PM 138 / 91 84 94 % 16 5 = Fully awake and oriented or at pre-proc level 01:28 PM / % 5 = Fully awake and oriented or at pre-proc level 01:28 PM / % 4 = Oriented but drowsy 01:43 PM / % 4 = Oriented but drowsy 01:58 PM / % 4 = Oriented but drowsy 02:13 PM / % 5 = Fully awake and oriented or at pre-proc level 01:30 PM 163 / 89 100 95 % 5 01:34 PM 145 / 99 95 95 % 19 01:39 PM 126 / 82 84 93 % 14 01:44 PM 135 / 78 78 89 % 17 01:49 PM 133 / 75 78 90 % 19 01:54 PM 135 / 80 78 91 % 16 01:59 PM 121 / 87 93 89 % 16 02:05 PM 126 / 77 78 94 % 21 02:09 PM 129 / 73 77 95 % 15 02:14 PM 132 / 74 65 90 % 10 02:19 PM 115 / 83 77 92 % 11 02:25 PM 131 / 75 76 91 % 22 02:29 PM 119 / 84 86 92 % 20 02:35 PM 130 / 87 82 94 % 15 02:28 PM / % 5 = Fully awake and oriented or at pre-proc level Procedural Medications Time Medication Dose Units Method Given By 01:27 PM Oxygen 2 L/min nasal cannula Kyle Mercer RN 01:34 PM Versed 2 mg Intravenous Kyle Mercer RN 01:34 PM Fentanyl 50 mcg Intravenous Kyle Mercer RN 01:42 PM Lidocaine 2% 1 ml Subcutaneous Calin Ohara MD 01:43 PM Heparin 4000 units Nitroglycerin 200 mcg Verapamil 2.5 mg Intraarterial Calin Ohara MD 01:47 PM Oxygen 4 L/min nasal cannula Kyle Mercer RN 02:03 PM Aggrastat Bolus: 37.5 ml Intravenous Kyle Mercer RN 02:04 PM Aggrastat 5mg/100ml 13.5 ml/hr Intravenous Kyle Mercer RN 02:37 PM Plavix 600 mg Orally Kyle Mercer RN ASA Classification: CLASS II- Mild systemic disease (i.e. well-controlled diabetes, hypertension, asthma, cigarette smoking) Suki Score Preprocedure Postprocedure Activity 2- Moves 4 extremities sustained head lift Activity 2- Moves 4 extremities sustained head lift Circulation 2- SBP +/= 20 points of pre-anesthetic level Circulation 2- SBP +/= 20 points of pre-anesthetic level Consciousness 2- Awake and alert oriented x 3 Consciousness 2- Awake and alert oriented x 3 O2 Saturation 2- Able to maintain O2 satruation of 92% on room air O2 Saturation 2- Able to maintain O2 satruation of 92% on room air Respiratory 2- Able to deep breathe and cough well Respiratory 2- Able to deep breathe and cough well Total Score 10 Total Score 10 Contrast Agent: Isovue Diagnostic Contrast: 254 ml Total Contrast: 254 ml Fluoro Dose: 1391 mGy Activated Clotting Time Time Seconds to Clot 02:06 PM 208 Procedure Log Time Note Enter By 12:57 PM CathStat 01:09 PM Kyle Mercer RN Position: Regional Office Coordinator Time in: 13:09 scoates 01: PM Ayanna Lisa RN Position: Regional Office Coordinator Time in: 13: scoates 01:09 PM Tricia Arriaga RT (R) Position: Scrub Time in: 13: scoates 01:09 PM Sonal Jarrett RN Position: Monitor Time in: 13: scoates 01: PM Patient charges- Angio tray pack, Navilyst 3mm J, Pulse Oximetry and ACIST tubing and transducer scoates 01:09 PM Case Delayed No scoates 01:10 PM ASA Class CLASS II- Mild systemic disease (i.e. well-controlled diabetes, hypertension, asthma, cigarette smoking) scoates 01:21 PM Physician arrived 13:21 [facility] : PM [facility] and greet completed [facility] PM Sign in performed according to hospital policy. [facility] : PM Procedure start 13:24 [facility] : PM Time: 13:27 Oxygen on at 2 L/min per nasal cannula by Kyle Mercer RN [facility] PM Time: 13:28 Patient comfortable and pain free: Yes [facility] PM Time: 13:28LOC: 5 = Fully awake and oriented or at pre-proc level [facility] : PM Clinical Presentation: Non-STEMI [facility] :29 PM Vitals capture started with the following parameters, Patient=Adult, Interval=5 min, Initial Jdqgktnz=259 mmHg, Deflation Rate=5 mmHg, Cuff placed on Right Arm 01:30 PM CA=883 bpm, RKHF=631/89 mmhg, SpO2=95.0 %, Resp=5 B/min, EtCO2=35 mmHg, Comment=NSR 01:32 PM Recorded ECG: HR=99 Condition=Condition 1 01:33 PM Hair removed from procedure site in procedure lab using clippers. Right wrist prepped with Chloraprep by Sylvie, Kyle RN, safety strap applied then patient was draped. Skin intact. [facility] PM Hair removed from procedure site in procedure lab using clippers. Right groin prepped with Chloraprep by Kyle Mercer RN, safety strap applied then patient was draped. Skin intact. екатерина :34 PM Time: 13:34 Versed 2 mg Intravenous Given by [facility]cer RN [facility] PM Time: 13:34 Fentanyl 50 mcg Intravenous Given by Kyle Mercer RN [facility] 01:34 PM HR=95 bpm, XNLN=202/99 mmhg, SpO2=95.0 %, Resp=19 B/min, EtCO2=34 mmHg, Comment=NSR 01:39 PM HR=84 bpm, KQHF=018/82 mmhg, SpO2=93.0 %, Resp=14 B/min, EtCO2=34 mmHg, Comment=NSR 01:40 PM Pressure channel 3 zeroed. 01:41 PM Time out performed according to hospital policy [facility] PM Time: 13:42 1 ml Lidocaine 2% to right radial Subcutaneous Given by Calin Ohara MD [facility] 01:43 PM Access obtained by percutaneous puncture. 6Fr 11cm Terumo Glidesheath sheath placed in right Radial artery. [id number] [facility] PM Time: 13:28 Patient comfortable and pain free: Yes екатерина :43 PM Time: 13:28LOC: 4 = Oriented but drowsy [facility] PM Time: 13:43 Patient given 4,000 units Heparin, 200 mcg Nitroglycerin, and 2.5 mg Verapamil Intraarterial by MD екатерина Awan 01:43 PM 5Fr Antony Rad[facility] PM 0.035 260cm Navilyst 3mmJ wire [id number] [facility] 01:44 PM HR=78 bpm, PGSJ=811/78 mmhg, SpO2=89.0 %, Resp=17 B/min, EtCO2=34 mmHg, Comment=NSR 01:45 PM Recorded Pressure: LV, HR=79, Condition=Condition 1 (Left Ventricle) LV 108/15/16 01:46 PM Recorded Pressure: LV, Ao, HR=78, Condition=Condition 1 (Left Ventricle) LV 104/11/15, (Aorta) Ao 111/73/92 01:46 PM Catheter selectively placed in left ventricle pressures obtained lparsley 01:46 PM LCA angiography performed in multiple views. lparsley 01:47 PM Recorded Pressure: Ao, HR=79, Condition=Condition 1 (Aorta) Ao 113/77/94 01:47 PM Time: 13:47 Oxygen on at 4 L/min per nasal cannula by Kyle Mercer RN lparsley 01:49 PM HR=78 bpm, HLEH=207/75 mmhg, SpO2=90.0 %, Resp=19 B/min, EtCO2=28 mmHg, Comment=NSR 01:50 PM Recorded Pressure: Ao, HR=79, Condition=Condition 1 (Aorta) Ao 118/78/97 01:51 PM RCA angiography performed in multiple views. lparsley 01:51 PM Recorded Pressure: Ao, HR=77, Condition=Condition 1 (Aorta) Ao 114/77/95 01:51 PM Catheter removed lparsley 01:51 PM 5Fr Pigtail catheter inserted over the wire DNC unable to cross lparsley 01:54 PM HR=78 bpm, BFOO=448/80 mmhg, SpO2=91.0 %, Resp=16 B/min, EtCO2=29 mmHg, Comment=NSR 01:56 PM Catheter removed lparsley 01:56 PM Antony radial reinserted over the wire. lparsley 01:58 PM Time: 13:43 Patient comfortable and pain free: Yes lparsley 01:58 PM Time: 13:43LOC: 4 = Oriented but drowsy lparsley 01:58 PM Catheter removed lparsley 01:58 PM pigtail reinserted over the wire lparsley 01:59 PM Catheter selectively placed in left ventricle lparsley 01:59 PM HR=93 bpm, OVXD=537/87 mmhg, SpO2=89.0 %, Resp=16 B/min, EtCO2=35 mmHg, Comment=NSR 02:00 PM Recorded Pressure: LV, HR=81, Condition=Condition 1 (Left Ventricle) LV 112/2/22 02:00 PM Bolus angiogram of left Ventricle complete: 10 ml/sec for a total of 30 mls lparsley 02:01 PM Recorded Pressure: LV, Ao, HR=87, Condition=Condition 1 (Left Ventricle) LV 123/7/18, (Aorta) Ao 135/69/98 02:02 PM Catheter removed lparsley 02:02 PM PCI Status Urgent lparsley 02:02 PM PCI Indication: PCI for high risk Non-STEMI or unstable angina lparsley 02:02 PM PCI lesion in Proximal LAD. Pre Stenosis: 90 Pre PAT Flow: 3: Complete and Brisk Flow/Perfusion lparsley 02:02 PM Coronary Dominance: right lparsley 02:02 PM Proximal Left Anterior Descending Coronary Artery with 90% stenosis. lparsley 02:03 PM 6Fr XB3.5 Springer Bright-Tip guide catheter was used to cannulate the PCI vessel successfully. reused? [facility] 02[facility] PM Time: 14:03 Aggrastat Bolus: 37.5 ml Intravenous Given by Kyle Mercer RN Bonilla pump lparsley 02:04 PM Time: 14:04 Aggrastat 5mg/100ml 13.5 ml/hr Intravenous Given by Kyle Mercer RN [facility] 02:04 PM Inflation device was opened. [facility] 02:05 PM HR=78 bpm, MWOL=842/77 mmhg, SpO2=94.0 %, Resp=21 B/min, EtCO2=34 mmHg, Comment=NSR 02:06 PM At 14:06 the ACT was 208 seconds. [facility] 02:07 PM Recorded Pressure: Ao, HR=79, Condition=Condition 1 (Aorta) Ao 124/76/97 02:07 PM .014 Prowater 180cm guide wire across target lesion- successful. reused? No [facility] 02:09 PM HR=77 bpm, AZXO=782/73 mmhg, SpO2=95 %, Resp=15 B/min, EtCO2=29 mmHg, Comment=NSR 02:13 PM Time: 13:58 Patient comfortable and pain free: Yes [facility] 02:13 PM Time: 13:58LOC: 4 = Oriented but drowsy [facility] 02:13 PM Recorded Pressure: Ao, HR=80, Condition=Condition 1 (Aorta) Ao 121/76/96 02:14 PM HR=65 bpm, MVEE=171/74 mmhg, SpO2=90.0 %, Resp=10 B/min, EtCO2=29 mmHg, Comment=NSR 02:18 PM 3.0 mm x 15 mm Trek Rx balloon across target lesion- successful. reused? No lparsley 02:19 PM HR=77 bpm, DJLO=892/83 mmhg, SpO2=92.0 %, Resp=11 B/min, EtCO2=34 mmHg, Comment=NSR 02:20 PM Recorded Pressure: Ao, HR=80, Condition=Condition 1 (Aorta) Ao 113/82/97 02:20 PM Balloon inflated @ 8 trung for 26 seconds lparsley 02:21 PM Balloon inflated @ 8 trung for 11 seconds lparsley 02:21 PM Balloon inflated @ 8 trung for 15 seconds lparsley 02:23 PM Balloon inflated @ 8 trung for 22 seconds lparsley 02:24 PM Balloon catheter removed intact. lparsley 02:25 PM HR=76 bpm, RDJE=451/75 mmhg, SpO2=91.0 %, Resp=22 B/min, EtCO2=35 mmHg, Comment=NSR 02:27 PM Recorded Pressure: Ao, HR=78, Condition=Condition 1 (Aorta) Ao 125/75/96 02:27 PM 3.25mm x 18mm Xience Alpine BEA drug-eluting stent across target lesion- successful Lot #[id number] lparsley 02:28 PM Time: 14:13LOC: 5 = Fully awake and oriented or at pre-proc level lparsley 02:28 PM Time: 14:13 Patient comfortable and pain free: Yes lparsley 02:29 PM Stent deployed @ 16 trung for 30 seconds lparsley 02:29 PM HR=86 bpm, NIJD=166/84 mmhg, SpO2=92.0 %, Resp=20 B/min, EtCO2=34 mmHg, Comment=NSR 02:31 PM Stent delivery system removed intact. lparsley 02:31 PM 3.5mm x 15mm Xience Alpine BEA drug-eluting stent across target lesion- successful Lot #[id number] lparsley 02:33 PM Recorded Pressure: Ao, HR=86, Condition=Condition 1 (Aorta) Ao 102/82/93 02:33 PM Stent deployed @ 14 trung for 30 seconds lparsley 02:34 PM Stent delivery system removed intact. lparsley 02:34 PM Guide wire removed intact. lparsley 02:34 PM Guide catheter removed intact. lparsley 02:35 PM HR=82 bpm, JQJG=604/87 mmhg, SpO2=94.0 %, Resp=15 B/min, EtCO2=35 mmHg, Comment=NSR 02:35 PM Procedure completed at 14:35 lparsley 02:36 PM Sign out completed: Radiation Dose 1391.17 mGy Fluoro Time: 18.9 Isovue 370 - 200ml contrast 254 ml given by Calin Ohara MD. Complications: NoneCardiac Rehab Consult needed: YesConfirmed administered medications: Yes lparsley 02:36 PM Isovue 370 - 500ml,1 Bottle(s) used. lparsley 02:36 PM Arterial sheath pulled, Vasc Band closure device used and was Successful S/N. lparsley 02:37 PM 15 ml air in Vasc Band. lparsley 02:37 PM Post ECG NSR lparsley 02:37 PM Post Blood Pressure 130/87 lparsley 02:37 PM Time: 14:37 Plavix 600 mg Orally Given by Kyle Mercer RN lparsley 02:39 PM 14:39 Post Pulses Rt Radial 2+ lparsley 02:39 PM Information taught Cardiac Cath, PCI, and Vasc Band lparsley 02:39 PM Education needs Procedure, Plan of Care, and Safe & Effective Use of Medications lparsley 02:39 PM Learning barriers :None lparsley 02:39 PM Education Methods Verbal lparsley 02:39 PM Education evaluation Able to repeat information lparsley 02:40 PM Site status No bleeding/hematoma - Rt Wrist as reported by Sites, Tricia RT (R) at 14:40 lparsley 02:42 PM Report given to Anny CHAVEZ Pt taken to E Room #21. 14:41 lparsley 02:43 PM Plavix, Effient or Brilinta given Yes lparsley 02:43 PM Delay to floor No lparsley 02:43 PM Patient out of room: 14:43 lparsley 02:43 PM Family placed in consult room. lparsley 02:43 PM Complications: None lparsley 02:43 PM Fluoro Time: 18.9 lparsley 02:43 PM Isovue 370 - 200ml contrast 254 ml given by Calin Ohara MD. lparsley 02:43 PM Radiation Dose 1391.17 mGy lparsley 02:43 PM Time: 14:28 Patient comfortable and pain free: Yes екатерина 02:44 PM Time: 14:28LOC: 5 = Fully awake and oriented or at pre-proc level екатерина Complications Complication None Hemodynamics Pressures Site Systolic/A Wave Diastolic/V Wave Mean LV 108 15 16 LV 104 11 15 AO 111 73 92 AO 113 77 94 AO 118 78 97 AO 114 77 95 LV 112 2 22 LV 123 7 18 AO 135 69 98 AO 124 76 97 AO 121 76 96 AO 113 82 97 AO 125 75 96 AO 102 82 93 Post Procedure Information Blood Pressure: 130/87 mmHg Rhythm: NSR Post procedural instructions were given Closure Device Time Device Success/Fail 02/22/2017 2:36:00 PM Manual Compression Successful Site Checks Time Location Status Staff Sheath In? Note 02:40 PM Rt Wrist No bleeding/hematoma Sites, Tricia RT (R) Pulses Time Site Pre-Procedure Post-Procedure Note 02/22/2017 1:02:00 PM Bilateral radial 2+ 02/22/2017 1:03:00 PM Bilateral DP 2+ 2:39:00 PM Rt Radial 2+ Updated by Sonal Jarrett RN on 02/22/2017 2:48:32 PM electronically signed on 02/22/2017 2:49:02 PM with status of Final
--- NOTE | 2017-02-22 14:54 | Pre-Sedation Evaluation ---
Pre-sedation evaluation - Pre-sedation checklist Date of procedure: 02/22/17 Procedure: [facility] Recent Vitals: Last Vital Signs Temp 97.8 F 02/22/17 09:24 Pulse 80 02/22/17 13:33 Resp 16 02/22/17 13:33 BP 128/85 02/22/17 13:33 Pulse Ox 96 02/22/17 13:33 H&P (including ROS) documented in medical record: Yes Dietary Status: NPO after Midnight Airway Assessment: Patient can open mouth completely, TMJ function normal Dentition: No loose teeth or bridges, full dentition Possible difficult airway: No ASA Classification *see protocol: CLASS II-Mild systemic disease Plan of Care: Pt appropriate candidate for procedure/moderate/conscious sedation
[2017-02-22] MEDS ORDERED: Tirofiban 12.5 MG/250ML 12.5 MG/250 ML BAG IVC SCH (15:15)
[2017-02-22] MEDS ORDERED: *HR* Heparin 5,000 UNIT/ML VIAL SQ SCH (18:00)
[2017-02-23 05:21] LABS: Basophils % 0.4 %; Eosinophils # 0.2 K/mcL (0.0-0.6); Eosinophils % 1.9 %; Hematocrit 43.3 % (37.5-50.1); Hemoglobin 14.5 g/dL (12.9-16.9); Immature Granulocytes % 0.2 % (0-4); Lymphocytes # 2.8 K/mcL (0.6-4.6); Lymphocytes % 31.4 %; Mean Corpuscular HGB Conc 33.5 g/dL (31.6-35.5); Mean Corpuscular Hemoglobin 28.5 pg (28.0-33.3); Mean Corpuscular Volume 85.1 fL (83.0-100.0); Mean Platelet Volume 10.7 fL (9.4-12.4); Monocytes # 0.7 K/mcL (0.0-1.3); Neutrophils # 5.2 K/mcL (1.6-8.9); Platelet Count 205 K/mcL (140-400); Red Blood Count 5.09 M/mcL (4.19-5.50); Red Cell Distribution Width 13.6 % (11.5-14.5); Segmented Neutrophils % 58.1 %
[2017-02-23 05:32] LABS: BUN/Creatinine Ratio 18 (6-26); Blood Urea Nitrogen 18 mg/dL (8-26); Carbon Dioxide 23 mEq/L (19-29); Chloride 107 mEq/L (98-109); Glucose 103 mg/dL (70-99); Osmolality,Calculated 292 (280-300); Potassium 3.4 mEq/L (3.5-4.5); Sodium 140 mEq/L (136-145); eGFR For African Americans > 60 (> 60); eGFR For Non-African Americans > 60 (> 60)
[2017-02-23] MEDS ORDERED: Furosemide 20 MG TABLET PO SCH (09:00)
[2017-02-23] MEDS ORDERED: Aspirin 81 MG TAB.CHEW PO SCH (09:00)
--- NOTE | 2017-02-23 09:01 | Cardiology Progress Note ---
Date of Encounter: 02/23/17 Time of Encounter: 08:00 Assessment and Plan (1) Systolic CHF Current Visit: Yes Status: Acute Newly diagnosed systolic CHF--etiology and chronicity unclear. Patient appears well compensated, euvolemic upon exam today. CXR: small bilateral pleural effusions, chest CTA: small bilateral effusions R>L , BNP >2000. TTE: LVEF 15%, severe global left ventricular systolic dysfunction, moderate left ventricular diastolic dysfunction, moderate to severely dilated left atrium , mild AR, mitral valve leaflets are tethered apically, severe mitral regurgitation, the aortic root is mildly dilated, measuring 4.2 cm in the tubular portion, the IVC is dilated, < 50% respiratory change. S/p PCI to pLAD; otherwise non-obstructive CAD. Continue GDMT including DAPT, betablocker, ACEi, diuretic, and statin. Post PCI discharge instructions discussed including care of cath site (right radial) and importance of uninterrupted DAPT (asa + plavix) for at least 1 year. Pt. verbalizes understanding. Strict I&O's, daily weights, Na/Fluid restriction diet. CHF teaching discussed. Will need to re-evaluate LVEF in 3 months after revascularization and trial of GDMT. Follow-up with [facility] in 1-2 weeks, will coordinate appt. Qualifiers: Congestive heart failure chronicity: acute Qualified Code(s): I50.21 - Acute systolic (congestive) heart failure (2) Elevated troponin Current Visit: Yes Status: Acute Flat, adynamic troponin elevation (0.04 x3). s/p PCI to pLAD otherwise non-obstructive CAD. (3) Hypertension Current Visit: Yes Status: Acute Control improved. Lopressor changed to Coreg due to CHF, continue ACEi. Na/fluid restriction diet. Qualifiers: Hypertension type: essential hypertension Qualified Code(s): I10 - Essential (primary) hypertension Discussion w patient/family: The assessment and plan as outlined above was discussed with the patient and/or family members who expressed understanding and agreement. All questions were answered. Thank you for involving us in the care of your patient. Please call with any questions. The patient was discussed and reviewed with Dr. Cecilio Butler; Cardiology will sign-off, please call with questions. Subjective Principal diagnosis: Cardiomyopathy Interval history: Seen and examined. Denies acute events overnight, reports dyspnea with minimal exertion. No recurrent chest pain, issues with cath site, or leg edema. Objective General: Conversant, No Apparent Distress HEENT: Atraumatic, Normocephaly, Mucus Membranes Moist Neck: No JVD, Normal carotid pulses Cardiac: Reg Rate and Rhythm, Normal S1 and S2, No Murmur Lungs: Normal Breath Sounds, No Wheeze, Rales, Rhonchi Neuro: Alert and responsive, No focal deficits noted Abdomen: Soft, Non-Tender Skin: No rashes noted on visualized skin Musculoskeletal: No Chest Wall Tenderness Extremities: No Clubbing, No Cyanosis, No Edema, Normal Pulses Results 02/23/17 04:46 02/23/17 04:46 Lab Results 02/23/17 02/23/17 04:46 04:46 WBC 9.0 Hgb 14.5 Hct 43.3 Plt Count 205 Sodium 140 Potassium 3.4 L Chloride 107 Carbon Dioxide 23 BUN 18 Creatinine 0.99 Glucose 103 H Calcium 9.0 Active Medications Acetaminophen (Tylenol) 650 mg PO Q6HR PRN PRN Reason: Mild Pain (1-3) Stop: 08/23/17 12:32 Aspirin (Aspirin) 81 mg PO DAILY [facility] Stop: 08/24/17 09:01 Last Admin: 02/22/17 09:27 Dose: 81 mg Carvedilol (Coreg) 6.25 mg PO BIDWM [facility] PRN Reason: Protocol Stop: 08/24/17 08:01 Last Admin: 02/22/17 17:00 Dose: 6.25 mg Clopidogrel Bisulfate (Plavix) 75 mg PO DAILY [facility] Stop: 08/25/17 09:01 Furosemide (Lasix) 20 mg PO DAILY [facility] Stop: 08/25/17 09:01 Hydralazine HCl (Hydralazine) 10 mg IVP Q6HR PRN PRN Reason: Hypertension Stop: 08/23/17 13:45 Lisinopril (Zestril) 5 mg PO DAILY [facility] PRN Reason: Protocol Stop: 08/23/17 13:46 Last Admin: 02/22/17 09:28 Dose: 5 mg Naloxone HCl (Narcan) 0.4 mg IVP Q2MIN PRN PRN Reason: Opioid Reversal Stop: 08/23/17 12:32 Nicotine (Nicoderm) 21 mg TD DAILY [facility] Stop: 08/23/17 13:46 Last Admin: 02/22/17 09:28 Dose: Not Given Ondansetron HCl (Zofran) 4 mg IVP Q8HR PRN PRN Reason: Nausea And Vomiting Stop: 08/23/17 12:32 - Imaging and Cardiology Echo: report reviewed Cardiac cath: report reviewed Other Results: 12 hour tele: avg HR=80 SR. Frequent PVCs. - EKG Interpretation EKG results cardiology: personally reviewed - VTE Documentation of Mechanical Device: Graduated compression elastic hosiery Consult Discharge Plan - Plan Referrals: NONE,PCP [Primary Care Provider] -
[2017-02-23 09:51] VITALS: BP 127/85
[2017-02-23] MEDS: Aspirin 81 MG TAB.CHEW PO SCH (09:52)
[2017-02-23] MEDS: Nicotine 21 MG PATCH.TD24 TD SCH (09:54)
--- NOTE | 2017-02-23 13:31 | Discharge Summary ---
Date of Encounter: 02/23/17 Time of Encounter: 11:00 - Discharge Diagnosis (1) Elevated troponin Priority: Primary Status: Acute (2) Smoker Priority: Secondary Status: Acute (3) DVT prophylaxis Priority: Secondary Status: Acute (4) Hypertension Priority: Secondary Status: Acute Qualifiers: Hypertension type: essential hypertension Qualified Code(s): I10 - Essential (primary) hypertension (5) Systolic CHF Priority: Primary Status: Acute Qualifiers: Congestive heart failure chronicity: acute Qualified Code(s): I50.21 - Acute systolic (congestive) heart failure - Discharge Medications Prescriptions: Aspirin 81 mg PO DAILY #30 Atorvastatin [Lipitor] 40 mg PO HS #30 tab Carvedilol [Coreg] 6.25 mg PO BIDWM #60 tab Clopidogrel [Plavix] 75 mg PO DAILY #30 tab Furosemide [Lasix] 20 mg PO DAILY #30 tab Lisinopril [Zestril] 5 mg PO DAILY #30 tab Nicotine Patch [Nicoderm] 21 mg TD DAILY #14 Home Medications: Aspirin 81 mg PO DAILY #30 02/23/17 [Rx] Atorvastatin [Lipitor] 40 mg PO HS #30 tab 02/23/17 [Rx] Carvedilol [Coreg] 6.25 mg PO BIDWM #60 tab 02/23/17 [Rx] Clopidogrel [Plavix] 75 mg PO DAILY #30 tab 02/23/17 [Rx] Furosemide [Lasix] 20 mg PO DAILY #30 tab 02/23/17 [Rx] Lisinopril [Zestril] 5 mg PO DAILY #30 tab 02/23/17 [Rx] Nicotine Patch [Nicoderm] 21 mg TD DAILY #14 02/23/17 [Rx] Allergies/Adverse Reactions: 3 Allergy/AdvReac Type Severity Reaction Status Date / Time No Known Allergies Allergy Verified 02/21/17 07:43 Procedures/tests Complete & Pending: Procedures Performed prior 72 hours Category Date Time Status CL Cardiac Catheterization [CL] Routine 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 Takes no meds, has not seen a healthcare provider in years Call Completed: Yes 02/23/17 07:34 Consult to Cardiac Rehabilitation-Phase1 [CONS] Routine Comment: Reason for Consult: CHF, PCI Call Completed: No Discharging clinician: Bridgette Palomo Anticipated date of discharge: 02/23/17 - Patient Status Disposition: Home, Self-Care Condition: Good Functional capacity at discharge: independent ambulation Overall status at discharge: patient is back to baseline - Discharge Instructions Follow Up With: NONE,PCP [Primary Care Provider] - - Diet and Activity Activity: increase activity as tolerated Diet: low salt diet Interval History: HPI: Mr. Malone is a 66 year old male no significant past medical history as he has not seen a healthcare provider in years presented to the emergency department today with complaints of shortness of breath for 1 week as well as tightness in his chest radiating to his arms. Patient reports he has noticed shortness of breath last week, worse with exertion, worse when lying flat at night and then yesterday and today noticed some tightness in his chest. The tightness radiates down his bilateral arms and he has some numbness and tingling in bilateral hands, this seems to be worse with activity as well. He denies any lightheadedness, headache, palpitations, nausea, vomiting, abdominal pain, fever, chills or sweats. Evaluation in emergency department revealed mildly elevated d-dimer of 829, mildly elevated troponin of 0.04, elevated BNP of 2008. EKG showed sinus Tachycardia with occasional PVCs. CTA showed no PE, small bilateral pleural effusions moderate emphysematous changes and a dilated aortic root. Chest x-ray was most consistent with congestive heart failure. On exam, patient alert and oriented, in no acute distress. Heart had regular rate and rhythm. Lungs with bilateral crackles in the bases. No peripheral edema, peripheral pulses intact. Hospital course: Mr. Malone is a 66 year old male admitted for new onset systolic CHF. Patient was placed on beta zina and BERNABE inhibitor and Lasix. Cardiology consult was called. Patient had LHC which shows coronary heart disease and patient had stent placed. After treatment, patient feels fine. Sandwich Counter Attendant sign off. We will discharge patient home and continue follow-up with cardiology as outpatient. Saw and Examined the Patient Today. Patient is awake alert, denies chest pain or shortness of breath. No leg swelling. Appears euvolemic. Vitals are stable. We will discharge patient home with DAPT, beta zina, BERNABE inhibitor, statin, and Lasix. Patient will follow-up with cardiology as outpatient. Time spent discussing smoking cessation with patient: 3 to 10 minutes - Time Spent with Patient Total time spent providing and/or coordinating discharge services: 40 minutes Greater than 30 minutes - Constitutional Vitals: Temp Pulse Resp BP Pulse Ox 97.8 F 87 16 127/85 95 02/23/17 09:50 02/23/17 09:50 02/23/17 09:50 02/23/17 09:50 02/23/17 09:50 General appearance: Present: A&O X 3, pleasant, no acute distress, answers questions appropriately - Head Head exam: Present: atraumatic, normocephalic - Eye Eye exam: Present: PERRL, conjuntiva pink, sclera anicteric Pupils: Present: PERRL - Neck Neck exam general surgery: Present: supple, trachea midline. Absent: lymphadenopathy - Respiratory Respiratory exam: Present: CTAB. Absent: accessory muscle use, rales, rhonchi, wheezes - Cardiovascular Cardiovascular exam: Present: RRR, +S1, +S2. Absent: diastolic murmur, gallop, rubs, systolic murmur - GI/Abdominal GI/Abdominal exam: Present: normal bowel sounds, soft, no peritoneal signs. Absent: distended, tenderness - Extremities Exam Extremities exam: Present: warm, radial pulses palpable and symmetrical. Absent : calf tenderness, cyanotic, pedal edema - Neurological Exam Neurological exam: Present: CN II-XII intact, oriented X3, no focal deficits. Absent: pronater drift, facial droop, speech deficit - Skin Skin exam: Present: dry, intact - VTE Documentation of Mechanical Device: Graduated compression elastic hosiery
--- NOTE | 2017-02-24 21:24 | Electrocardiograph Report ---
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
== END 2017-02-23 15:15 | disposition home or self-care (01) ==
LOC: 3BNU 07:38 → EMEROO 07:38 → SUATTDRO 11:22 → 3BNU 12:11 → 2NENU 20:02
PROVIDERS: ADMIT Internal Medicine; ATTEND Internal Medicine

== ENCOUNTER 2020-12-31 17:17 | Inpatient (IN) ==
[2020-12-31 17:52] LABS: Basophils % 0.4 %; Eosinophils # 0.1 K/mcL (0.0-0.6); Eosinophils % 1.4 %; Hematocrit 45.2 % (37.5-50.1); Immature Granulocytes % 0.3 % (0-4); Lymphocytes % 21.2 %; Mean Corpuscular HGB Conc 33.2 g/dL (31.6-35.5); Mean Corpuscular Hemoglobin 29.6 pg (28.0-33.3); Mean Corpuscular Volume 89.2 fL (83.0-100.0); Monocytes # 0.6 K/mcL (0.0-1.3); Monocytes % 6.3 %; Neutrophils # 6.6 K/mcL (1.6-8.9); Platelet Count 179 K/mcL (140-400); Red Blood Count 5.07 M/mcL (4.19-5.50); Red Cell Distribution Width 14.2 % (11.5-14.5); Segmented Neutrophils % 70.4 %; White Blood Count 9.3 K/mcL (4.3-11.1)
[2020-12-31 18:02] LABS: INR 1.2
[2020-12-31] MEDS ORDERED: Aspirin 81 MG TAB.CHEW PO STA (18:10)
[2020-12-31 18:15] LABS: BUN/Creatinine Ratio 15 (6-26); Blood Urea Nitrogen 15 mg/dL (8-23); Calcium 9.2 mg/dL (8.6-10.3); Carbon Dioxide 25 mEq/L (23-29); Chloride 108 mEq/L (98-107); Glucose 103 mg/dL (70-105); Osmolality,Calculated 299 (280-300); Potassium 3.7 mEq/L (3.5-5.1); Sodium 144 mEq/L (136-145); eGFR For African Americans > 60 (> 60); eGFR For Non-African Americans > 60 (> 60)
[2020-12-31 18:16] LABS: Troponin I 0.03 ng/mL (< 0.04)
[2020-12-31 18:24] LABS: Lipase 23 Units/L (11-82)
[2020-12-31] MEDS ORDERED: Furosemide 20 MG/2 ML VIAL IVP ONE ×2 (18:37→22:06)
[2020-12-31] MEDS ORDERED: Ondansetron 4 MG/2 ML VIAL IVP PRN (21:44)
[2020-12-31] MEDS ORDERED: Melatonin 3 MG TABLET PO PRN (21:44)
[2020-12-31] MEDS ORDERED: Naloxone 0.4 MG/ML INJ IVP PRN (21:44)
[2020-12-31] MEDS ORDERED: Acetaminophen 325 MG TABLET PO PRN (21:44)
[2020-12-31] MEDS ORDERED: Perflutren Lipid Microsphere 1.3 ML in 0.9 % Sodium Chloride 8.7 ML IVP PRN (21:48)
[2020-12-31] MEDS ORDERED: *HR* Labetalol 20 MG/4 ML SYRINGE IVP ONE (22:13)
[2021-01-01 05:16] LABS: Basophils % 0.5 %; Eosinophils # 0.1 K/mcL (0.0-0.6); Eosinophils % 1.7 %; Immature Granulocytes % 0.3 % (0-4); Lymphocytes # 2.1 K/mcL (0.6-4.6); Lymphocytes % 32.2 %; Mean Corpuscular HGB Conc 33.3 g/dL (31.6-35.5); Mean Corpuscular Hemoglobin 29.7 pg (28.0-33.3); Mean Platelet Volume 10.3 fL (9.4-12.4); Monocytes # 0.5 K/mcL (0.0-1.3); Monocytes % 8.3 %; Neutrophils # 3.7 K/mcL (1.6-8.9); Platelet Count 171 K/mcL (140-400); Red Blood Count 4.72 M/mcL (4.19-5.50); Red Cell Distribution Width 14.1 % (11.5-14.5); White Blood Count 6.4 K/mcL (4.3-11.1)
[2021-01-01 05:33] LABS: Alanine Aminotransferase 16 Units/L (7-52); Albumin 3.8 g/dL (3.5-5.7); Albumin/Globulin Ratio 1.7 (1.1-2.2); Alkaline Phosphatase 108 Units/L (34-104); Aspartate Amino Transferase 13 Units/L (13-39); BUN/Creatinine Ratio 16 (6-26); Bilirubin,Total 1.3 mg/dL (0.3-1.0); Blood Urea Nitrogen 15 mg/dL (8-23); Calcium 8.4 mg/dL (8.6-10.3); Carbon Dioxide 25 mEq/L (23-29); Chloride 108 mEq/L (98-107); Globulin 2.2 g/dL (2.4-3.5); Glucose 103 mg/dL (70-105); Magnesium 1.7 mg/dL (1.6-2.6); Osmolality,Calculated 295 (280-300); Phosphorous 3.8 mg/dL (2.7-4.5); Potassium 3.3 mEq/L (3.5-5.1); Sodium 142 mEq/L (136-145); Troponin I 0.03 ng/mL (< 0.04); eGFR For African Americans > 60 (> 60); eGFR For Non-African Americans > 60 (> 60)
[2021-01-01] MEDS: *HR* Heparin 5,000 UNIT/ML VIAL SQ SCH ×2 (06:01→19:10)
[2021-01-01] MEDS: Aspirin Enteric Coated 81 MG Tablet PO SCH (09:24)
[2021-01-01] MEDS: Furosemide 40 MG/4 ML VIAL IVP SCH (09:25)
[2021-01-01] MEDS: carvediloL 25 MG TABLET PO SCH ×2 (12:21→21:17)
[2021-01-01] MEDS: lisinopriL 10 MG TABLET PO SCH ×2 (12:21→21:16)
[2021-01-02] MEDS: *HR* Heparin 5,000 UNIT/ML VIAL SQ SCH ×2 (06:06→17:25)
[2021-01-02 06:09] LABS: Alanine Aminotransferase 13 Units/L (7-52); Albumin 3.7 g/dL (3.5-5.7); Albumin/Globulin Ratio 1.8 (1.1-2.2); Alkaline Phosphatase 105 Units/L (34-104); Aspartate Amino Transferase 13 Units/L (13-39); BUN/Creatinine Ratio 20 (6-26); Bilirubin,Total 1.2 mg/dL (0.3-1.0); Blood Urea Nitrogen 19 mg/dL (8-23); Calcium 8.7 mg/dL (8.6-10.3); Carbon Dioxide 27 mEq/L (23-29); Chloride 108 mEq/L (98-107); Chol/HDL Ratio 4.2 (0-4.9); Cholesterol 92 mg/dL (< 200); Globulin 2.1 g/dL (2.4-3.5); Glucose 115 mg/dL (70-105); HDL Cholesterol 22 mg/dL (40-59); LDL Cholesterol,Calculated 45 mg/dL (< 100); Magnesium 1.9 mg/dL (1.6-2.6); Osmolality,Calculated 295 (280-300); Potassium 3.5 mEq/L (3.5-5.1); Sodium 141 mEq/L (136-145); Total Protein 5.8 g/dL (6.4-8.9); Triglycerides 123 mg/dL (< 150); eGFR For African Americans > 60 (> 60); eGFR For Non-African Americans > 60 (> 60)
[2021-01-02] MEDS: lisinopriL 10 MG TABLET PO SCH ×2 (08:23→22:31)
[2021-01-02] MEDS: carvediloL 25 MG TABLET PO SCH ×2 (08:23→17:25)
[2021-01-02] MEDS: Furosemide 40 MG/4 ML VIAL IVP SCH (08:23)
[2021-01-02] MEDS: Aspirin Enteric Coated 81 MG Tablet PO SCH (08:24)
[2021-01-02 09:35] LABS: Estimated Average Glucose 114 mg/dl; Hemoglobin A1C 5.6 %
[2021-01-03] MEDS: *HR* Heparin 5,000 UNIT/ML VIAL SQ SCH (06:20)
[2021-01-03 06:55] LABS: Alanine Aminotransferase 13 Units/L (7-52); Albumin 3.7 g/dL (3.5-5.7); Albumin/Globulin Ratio 1.8 (1.1-2.2); Alkaline Phosphatase 106 Units/L (34-104); Aspartate Amino Transferase 11 Units/L (13-39); BUN/Creatinine Ratio 25 (6-26); Bilirubin,Total 1.1 mg/dL (0.3-1.0); Blood Urea Nitrogen 22 mg/dL (8-23); Calcium 8.7 mg/dL (8.6-10.3); Carbon Dioxide 28 mEq/L (23-29); Chloride 106 mEq/L (98-107); Globulin 2.1 g/dL (2.4-3.5); Glucose 103 mg/dL (70-105); Osmolality,Calculated 296 (280-300); Potassium 3.3 mEq/L (3.5-5.1); Sodium 141 mEq/L (136-145); Total Protein 5.8 g/dL (6.4-8.9); eGFR For African Americans > 60 (> 60); eGFR For Non-African Americans > 60 (> 60)
[2021-01-03] MEDS: Aspirin Enteric Coated 81 MG Tablet PO SCH (08:18)
[2021-01-03] MEDS: carvediloL 25 MG TABLET PO SCH (08:18)
[2021-01-03] MEDS: Furosemide 40 MG/4 ML VIAL IVP SCH (08:18)
[2021-01-03] MEDS: lisinopriL 10 MG TABLET PO SCH (08:18)
[2021-01-03 10:08] VITALS: BP 119/66; PULSE 68; TEMP 97.8; O2SAT 93
[2021-01-04] MEDS ORDERED: Spironolactone 25 MG TABLET PO SCH (09:00)
== END 2021-01-03 15:22 | disposition home or self-care (01) | DRG 292 ==
LOC: EMEROOARM 17:17 → 3ANU 17:17 → SUATTDRO 19:48 → 3ANU 21:20 → SUATTDRO 01-01 13:48
PROVIDERS: ADMIT Internal Medicine; ATTEND General Practice

== ENCOUNTER 2021-07-10 15:34 | Inpatient (IN) ==
[2021-07-10] MEDS ORDERED: 0.9 % Sodium Chloride 500 ML IVC ONE ×3 (17:43→21:58)
[2021-07-10 18:28] LABS: Basophils % 0.1 %; Hematocrit 42.4 % (37.5-50.1); Hemoglobin 14.5 g/dL (12.9-16.9); Immature Granulocytes % 0.5 % (0-4); Lymphocytes # 1.3 K/mcL (0.6-4.6); Lymphocytes % 7.5 %; Mean Corpuscular HGB Conc 34.2 g/dL (31.6-35.5); Mean Corpuscular Hemoglobin 30.6 pg (28.0-33.3); Mean Corpuscular Volume 89.5 fL (83.0-100.0); Mean Platelet Volume 9.6 fL (9.4-12.4); Monocytes # 0.9 K/mcL (0.0-1.3); Monocytes % 5.3 %; Neutrophils # 14.6 K/mcL (1.6-8.9); Platelet Count 250 K/mcL (140-400); Red Blood Count 4.74 M/mcL (4.19-5.50); Segmented Neutrophils % 86.6 %; White Blood Count 16.8 K/mcL (4.3-11.1)
[2021-07-10] MEDS ORDERED: Ondansetron 4 MG/2 ML VIAL ONE (18:31)
[2021-07-10 18:38] LABS: INR 1.1
[2021-07-10 18:41] LABS: Activated Partial Thrombo Time 32.5 Seconds (26.0-36.0)
[2021-07-10 18:42] LABS: Thyroid Stimulating Hormone 1.092 mcIU/mL (0.340-5.600); Troponin I < 0.03 ng/mL (< 0.04)
[2021-07-10] MEDS ORDERED: Isovue-370 500 ML BOTTLE IVP ONE (18:42)
[2021-07-10] MEDS ORDERED: *HR* HYDROmorphone (PF) 1 MG/ML SYRINGE IVP ONE (18:56)
[2021-07-10 19:02] LABS: Alanine Aminotransferase 23 Units/L (7-52); Albumin 4.2 g/dL (3.5-5.7); Albumin/Globulin Ratio 1.2 (1.1-2.2); Alkaline Phosphatase 94 Units/L (34-104); Aspartate Amino Transferase 11 Units/L (13-39); Bilirubin,Total 0.3 mg/dL (0.3-1.0); Blood Urea Nitrogen > 130 mg/dL (8-23); Calcium 8.6 mg/dL (8.6-10.3); Carbon Dioxide 4 mEq/L (23-29); Chloride 102 mEq/L (98-107); Globulin 3.5 g/dL (2.4-3.5); Glucose 119 mg/dL (70-105); Lipase 111 Units/L (11-82); Magnesium 2.5 mg/dL (1.6-2.6); Potassium 7.5 mEq/L (3.5-5.1); Sodium 132 mEq/L (136-145); Total Protein 7.7 g/dL (6.4-8.9); eGFR For African Americans 5 (> 60); eGFR For Non-African Americans 4 (> 60)
[2021-07-10 19:07] LABS: Adenovirus Not Detected (Not Detect); Bordetella Pertussis Not Detected (Not Detect); Chlamydophila pneumoniae Not Detected (Not Detect); Coronavirus 229E Not Detected (Not Detect); Coronavirus HKU1 Not Detected (Not Detect); Coronavirus NL63 Not Detected (Not Detect); Coronavirus OC43 Not Detected (Not Detect); Human Metapneumovirus Not Detected (Not Detect); Human Rhinovirus/Enterovirus Not Detected (Not Detect); Influenza A Subtype 2009 H1 Not Detected (Not Detect); Influenza B Not Detected (Not Detect); Mycoplasma pneumoniae Not Detected (Not Detect); Parainfluenza Virus 1 Not Detected (Not Detect); Parainfluenza Virus 2 Not Detected (Not Detect); Parainfluenza Virus 3 Not Detected (Not Detect); Parainfluenza Virus 4 Not Detected (Not Detect); Respiratory Syncytial Virus Not Detected (Not Detect); SARS-CoV-2 DETECTED (Not Detect)
[2021-07-10] MEDS ORDERED: *HR* Dextrose 50 % in Water (Vial) 50 ML VIAL IVP ONE (19:10)
[2021-07-10] MEDS ORDERED: Insulin Human Regular 3 UNIT in 0.9 % Sodium Chloride 10 ML IV ONE (19:12)
[2021-07-10] MEDS ORDERED: Sodium Bicarbonate 50 MEQ/50 ML VIAL IVP ONE (19:13)
[2021-07-10] MEDS ORDERED: Calcium Gluconate 1,000 MG/10 ML VIAL IVP ONE (19:20)
[2021-07-10] MEDS ORDERED: SODIUM ZIRCONIUM CYCLOSILICATE 5 GM POWD.PACK PO STA (19:29)
[2021-07-10] MEDS: Sodium Bicarbonate 150 MEQ in D5% in Water 1,000 ML IVC SCH (19:42)
[2021-07-10] MEDS ORDERED: *HR* Dextrose 50 % in Water (Syg) 50 ML SYRINGE IVP ONE (19:45)
[2021-07-10 20:19] LABS: VBG HCO3 6 mEq/L (21-27); VBG PCO2 29 mmHg (41-51); VBG PH 6.92 pH Units (7.32-7.42); VBG PO2 65 mmHg (25-50)
[2021-07-10 21:49] LABS: Bilirubin,Urine Negative (Negative); Blood,Urine Trace (Negative); Clarity,Urine Turbid (Clear); Color,Urine Yellow (Yellow); Glucose,Urine (UA) Normal (Normal); Hyaline Casts,Urine Moderate per lpf (None Seen); Ketones,Urine Negative (Negative); Leukocyte Esterase,Urine Negative (Negative); Mucus,Urine Few per lpf (None-Few); Nitrite,Urine Negative (Negative); Protein,Urine 50 mg/dL (Neg-Trace); RBC,Urine 0-3 per hpf (0-3); Squamous Epithelial Cell,Urine Few per hpf (None-Few); Urobilinogen,Urine Normal (Normal)
[2021-07-10] MEDS ORDERED: Cefepime HCl 1,000 MG in 0.9 % Sodium Chloride Mini Bag 100 ML IVPB STA (22:51)
[2021-07-10] MEDS ORDERED: Vancomycin 1,250 MG/262.5 ML IV.SOLN IVPB ONE (22:52)
[2021-07-10] MEDS ORDERED: Ondansetron 4 MG/2 ML VIAL IVP PRN (23:26)
[2021-07-10] MEDS ORDERED: Naloxone 0.4 MG/ML INJ IVP PRN (23:26)
[2021-07-10 23:42] LABS: VBG HCO3 10 mEq/L (21-27); VBG PCO2 31 mmHg (41-51); VBG PH 7.13 pH Units (7.32-7.42); VBG PO2 32 mmHg (25-50)
[2021-07-11] MEDS: 0.9 % Sodium Chloride 1,000 ML IVC SCH ×2 (02:01→04:10)
[2021-07-11 02:13] LABS: Basophils % 0.1 %; Eosinophils % 0.2 %; Hematocrit 35.4 % (37.5-50.1); Immature Granulocytes % 0.2 % (0-4); Lymphocytes # 1.6 K/mcL (0.6-4.6); Lymphocytes % 15.1 %; Mean Corpuscular Hemoglobin 31.6 pg (28.0-33.3); Mean Corpuscular Volume 90.1 fL (83.0-100.0); Mean Platelet Volume 9.6 fL (9.4-12.4); Monocytes % 9.2 %; Platelet Count 173 K/mcL (140-400); Red Blood Count 3.93 M/mcL (4.19-5.50); Segmented Neutrophils % 75.2 %; White Blood Count 10.7 K/mcL (4.3-11.1)
[2021-07-11 02:16] LABS: Hemoglobin 12.4 g/dL (12.9-16.9)
[2021-07-11 02:59] LABS: Alanine Aminotransferase 16 Units/L (7-52); Alkaline Phosphatase 73 Units/L (34-104); Aspartate Amino Transferase 9 Units/L (13-39); Bilirubin,Total 0.3 mg/dL (0.3-1.0); Blood Urea Nitrogen > 130 mg/dL (8-23); Calcium 7.8 mg/dL (8.6-10.3); Carbon Dioxide 9 mEq/L (23-29); Chloride 105 mEq/L (98-107); Glucose 92 mg/dL (70-105); Magnesium 2.2 mg/dL (1.6-2.6); Phosphorous 11.8 mg/dL (2.7-4.5); Potassium 4.8 mEq/L (3.5-5.1); Sodium 138 mEq/L (136-145); Total Protein 6.1 g/dL (6.4-8.9); eGFR For African Americans 6 (> 60); eGFR For Non-African Americans 5 (> 60)
[2021-07-11 03:54] LABS: Albumin 3.5 g/dL (3.5-5.7); Albumin/Globulin Ratio 1.3 (1.1-2.2); Globulin 2.6 g/dL (2.4-3.5)
[2021-07-11] MEDS ORDERED: Sodium Bicarbonate 150 MEQ in Water for inj. (sterile) 1,000 ML IVC SCH (04:07)
[2021-07-11 06:42] LABS: Blood Urea Nitrogen > 130 mg/dL (8-23); Calcium 7.4 mg/dL (8.6-10.3); Carbon Dioxide 10 mEq/L (23-29); Chloride 109 mEq/L (98-107); Glucose 105 mg/dL (70-105); Potassium 4.2 mEq/L (3.5-5.1); Sodium 139 mEq/L (136-145); eGFR For African Americans 6 (> 60); eGFR For Non-African Americans 5 (> 60)
[2021-07-11] MEDS: *HR* Heparin 5,000 UNIT/ML VIAL SQ SCH ×2 (08:02→15:18)
[2021-07-11 09:54] LABS: C.difficile Toxin A/B Gene PCR Not detected (Not detect); Campylobacter by PCR Not detected (Not detect); Plesiomonas shigelloides PCR Not detected (Not detect); Salmonella PCR Not detected (Not detect); Vibrio PCR Not detected (Not detect); Vibrio cholerae PCR Not detected (Not detect); Yersinia enterocolitica PCR Not detected (Not detect)
[2021-07-11 09:55] LABS: Adenovirus F 40/41 PCR Not detected (Not detect); Astrovirus PCR Not detected (Not detect); Cryptosporidium by PCR Not detected (Not detect); Cyclospora cayetanensis PCR Not detected (Not detect); E. coli O157 by PCR Not detected (Not detect); Entamoeba histolytica PCR Not detected (Not detect); Enteroaggregative E.coli(EAEC) DETECTED (Not detect); Enteropathogenic E.coli(EPEC) Not detected (Not detect); Enterotoxigenic E.coli (ETEC) Not detected (Not detect); Giardia lamblia PCR Not detected (Not detect); Norovirus GI/GII PCR Not detected (Not detect); Rotavirus A PCR Not detected (Not detect); Sapovirus PCR Not detected (Not detect); Shig/EnteroinvasiveE coli EIEC Not detected (Not detect); Shigalike tox-prod E coli STEC Not detected (Not detect)
[2021-07-11] MEDS: Sodium Bicarbonate 150 MEQ in D5% in Water 1,000 ML IVC SCH ×3 (12:05→19:55)
[2021-07-11 12:39] LABS: Sodium, Urine 38.1 mEq/L
[2021-07-11 14:49] LABS: Blood Urea Nitrogen > 130 mg/dL (8-23); Calcium 7.6 mg/dL (8.6-10.3); Carbon Dioxide 11 mEq/L (23-29); Chloride 109 mEq/L (98-107); Glucose 124 mg/dL (70-105); Potassium 4.1 mEq/L (3.5-5.1); Sodium 139 mEq/L (136-145); eGFR For African Americans 7 (> 60); eGFR For Non-African Americans 6 (> 60)
[2021-07-11] MEDS: carvediloL 25 MG TABLET PO SCH (17:43)
[2021-07-12] MEDS: *HR* Heparin 5,000 UNIT/ML VIAL SQ SCH ×4 (00:20→20:02)
[2021-07-12] MEDS: Sodium Bicarbonate 150 MEQ in D5% in Water 1,000 ML IVC SCH (05:18)
[2021-07-12 06:22] LABS: Basophils % 0.4 %; Eosinophils % 0.8 %; Hematocrit 27.1 % (37.5-50.1); Immature Granulocytes % 0.4 % (0-4); Lymphocytes # 0.9 K/mcL (0.6-4.6); Mean Corpuscular HGB Conc 35.4 g/dL (31.6-35.5); Mean Corpuscular Hemoglobin 30.7 pg (28.0-33.3); Mean Corpuscular Volume 86.6 fL (83.0-100.0); Mean Platelet Volume 9.5 fL (9.4-12.4); Monocytes # 0.6 K/mcL (0.0-1.3); Monocytes % 10.9 %; Neutrophils # 3.6 K/mcL (1.6-8.9); Platelet Count 138 K/mcL (140-400); Red Blood Count 3.13 M/mcL (4.19-5.50); Red Cell Distribution Width 12.9 % (11.5-14.5); Segmented Neutrophils % 69.5 %
[2021-07-12 06:25] LABS: Hemoglobin 9.6 g/dL (12.9-16.9); White Blood Count 5.2 K/mcL (4.3-11.1)
[2021-07-12 07:47] LABS: Blood Urea Nitrogen > 130 mg/dL (8-23); Calcium 7.3 mg/dL (8.6-10.3); Carbon Dioxide 20 mEq/L (23-29); Chloride 105 mEq/L (98-107); Glucose 121 mg/dL (70-105); Potassium 3.3 mEq/L (3.5-5.1); Sodium 139 mEq/L (136-145); eGFR For African Americans 13 (> 60); eGFR For Non-African Americans 10 (> 60)
[2021-07-12] MEDS: 0.9 % Sodium Chloride 1,000 ML IVC SCH ×2 (09:54→23:26)
[2021-07-12] MEDS: carvediloL 25 MG TABLET PO SCH (09:55)
[2021-07-13 01:56] LABS: Basophils % 0.4 %; Eosinophils # 0.2 K/mcL (0.0-0.6); Eosinophils % 2.8 %; Hematocrit 27.3 % (37.5-50.1); Hemoglobin 9.6 g/dL (12.9-16.9); Immature Granulocytes % 0.4 % (0-4); Lymphocytes # 1.2 K/mcL (0.6-4.6); Lymphocytes % 21.7 %; Mean Corpuscular HGB Conc 35.2 g/dL (31.6-35.5); Mean Corpuscular Hemoglobin 31.2 pg (28.0-33.3); Mean Corpuscular Volume 88.6 fL (83.0-100.0); Mean Platelet Volume 9.4 fL (9.4-12.4); Monocytes # 0.6 K/mcL (0.0-1.3); Monocytes % 10.9 %; Neutrophils # 3.4 K/mcL (1.6-8.9); Platelet Count 130 K/mcL (140-400); Red Blood Count 3.08 M/mcL (4.19-5.50); Segmented Neutrophils % 63.8 %; White Blood Count 5.4 K/mcL (4.3-11.1)
[2021-07-13 02:11] LABS: Calcium 6.9 mg/dL (8.6-10.3); Potassium 3.5 mEq/L (3.5-5.1)
[2021-07-13] MEDS: *HR* Heparin 5,000 UNIT/ML VIAL SQ SCH ×3 (05:12→23:05)
[2021-07-13] MEDS: carvediloL 25 MG TABLET PO SCH ×2 (08:44→15:42)
[2021-07-13] MEDS: 0.9 % Sodium Chloride 1,000 ML IVC SCH (10:37)
[2021-07-13 14:40] LABS: Acinetobacter baumannii by PCR Not Detected (Not Detect); Candida albicans by PCR Not Detected (Not Detect); Candida glabrata by PCR Not Detected (Not Detect); Candida krusei by PCR Not Detected (Not Detect); Candida parapsilosis by PCR Not Detected (Not Detect); Candida tropicalis by PCR Not Detected (Not Detect); Enterobacter cloacae Cmplx PCR Not Detected (Not Detect); Enterobacteriaceae by PCR Not Detected (Not Detect); Enterococcus by PCR Not Detected (Not Detect); Escherichia coli by PCR Not Detected (Not Detect); Klebsiella oxytoca by PCR Not Detected (Not Detect); Klebsiella pneumoniae by PCR Not Detected (Not Detect); Proteus by PCR Not Detected (Not Detect); Pseudomonas aeruginosa by PCR Not Detected (Not Detect); Serratia marcescens by PCR Not Detected (Not Detect); Staphylococcus aureus by PCR Not Detected (Not Detect); Staphylococcus by PCR Not Detected (Not Detect); Streptococcus agalactiae(B)PCR Not Detected (Not Detect); Streptococcus by PCR Not Detected (Not Detect); Streptococcus pneumoniae PCR Not Detected (Not Detect); Streptococcus pyogenes (A) PCR Not Detected (Not Detect)
[2021-07-14] MEDS: 0.9 % Sodium Chloride 1,000 ML IVC SCH (07:03)
[2021-07-14 07:06] VITALS: BP 121/66; PULSE 72; TEMP 98.3; O2SAT 95
[2021-07-14 09:02] LABS: Basophils % 0.5 %; Eosinophils # 0.2 K/mcL (0.0-0.6); Eosinophils % 3.6 %; Hematocrit 32.1 % (37.5-50.1); Hemoglobin 10.6 g/dL (12.9-16.9); Immature Granulocytes % 0.5 % (0-4); Lymphocytes # 1.5 K/mcL (0.6-4.6); Lymphocytes % 24.5 %; Mean Corpuscular Hemoglobin 30.6 pg (28.0-33.3); Mean Corpuscular Volume 92.8 fL (83.0-100.0); Mean Platelet Volume 9.1 fL (9.4-12.4); Monocytes # 0.5 K/mcL (0.0-1.3); Monocytes % 8.6 %; Neutrophils # 3.8 K/mcL (1.6-8.9); Platelet Count 161 K/mcL (140-400); Red Blood Count 3.46 M/mcL (4.19-5.50); Red Cell Distribution Width 12.8 % (11.5-14.5); Segmented Neutrophils % 62.3 %; White Blood Count 6.1 K/mcL (4.3-11.1)
[2021-07-14] MEDS: carvediloL 25 MG TABLET PO SCH (09:16)
[2021-07-14] MEDS: *HR* Heparin 5,000 UNIT/ML VIAL SQ SCH (09:17)
[2021-07-14 09:24] LABS: Calcium 7.8 mg/dL (8.6-10.3); Potassium 3.6 mEq/L (3.5-5.1)
== END 2021-07-14 11:06 | disposition home or self-care (01) | DRG 871 ==
LOC: EMEROOARM 15:34 → 2NNU 15:34 → SUATTDRO 07-11 03:57 → 2ANU 07-12 13:00
PROVIDERS: ADMIT Family Medicine; ATTEND Internal Medicine